=== PATIENT | male | born 1950 | race Caucasian/White ===

== ENCOUNTER 2019-11-01 02:40 | Outpatient (CLI) | payer MEDICARE, SELFPAY ==
[2019-11-01 16:48] LABS: ALT 38 U/L (16-63); AST 18 U/L (15-37); Alkaline Phosphatase 74 U/L (46-116); Bilirubin, Direct 0.09 mg/dL (0.00-0.20); Bilirubin, Total 0.4 mg/dL (0.2-1.0); Total Protein 6.8 g/dL (6.4-8.2)
== END 2019-11-01 03:00 ==
PROVIDERS: Visit Provider Radiology Radiation Oncology
DX: C61 Malignant neoplasm of prostate (principal)
CPT/HCPCS: 36415; 80076

== ENCOUNTER 2019-12-12 02:36 | Outpatient (CLI) | payer MEDICARE, SELFPAY ==
[2019-12-12 10:52] LABS: ALT 36 U/L (16-63); AST 18 U/L (15-37); Albumin 3.5 g/dL (3.4-5.0); Alkaline Phosphatase 74 U/L (46-116); Bilirubin, Direct 0.13 mg/dL (0.00-0.20); Bilirubin, Total 0.6 mg/dL (0.2-1.0); Total Protein 6.1 g/dL (6.4-8.2)
== END 2019-12-12 02:56 ==
PROVIDERS: Visit Provider Radiology Radiation Oncology
DX: C61 Malignant neoplasm of prostate (principal)
CPT/HCPCS: 36415; 80076

== ENCOUNTER 2020-04-02 02:25 | Outpatient (CLI) | payer OTHER, SELFPAY ==
[2020-04-02 11:07] LABS: ALT 35 U/L (16-63); AST 15 U/L (15-37); Albumin 3.4 g/dL (3.4-5.0); Alkaline Phosphatase 97 U/L (46-116); Bilirubin, Direct 0.07 mg/dL (0.00-0.20); Bilirubin, Total 0.4 mg/dL (0.2-1.0); Total Protein 6.2 g/dL (6.4-8.2)
[2020-04-03 15:48] LABS: PSA, Ultrasensitive 0.05 ng/mL (<= 6.5)
[2020-04-06 00:07] LABS: Testosterone, Total 14 ng/dL (240-950)
== END 2020-04-02 02:45 ==
PROVIDERS: Visit Provider Radiology Radiation Oncology
DX: C61 Malignant neoplasm of prostate (principal)
CPT/HCPCS: 36415; 80076; 84153; 84403

== ENCOUNTER 2020-05-24 10:00 | Outpatient (REF) | payer MEDICARE, SELFPAY ==
[2020-05-27 12:51] LABS: COVID-19 RT-PCR UVMMC Result Negative (Negative)
== END 2020-05-24 10:01 | disposition home or self-care (01) ==
LOC: NCHCN 10:00
PROVIDERS: PCP Internal Medicine; Visit Provider Internal Medicine
DX: Z20.822 Contact with and (suspected) exposure to COVID-19 (principal)
CPT/HCPCS: U0003

== ENCOUNTER 2020-08-08 13:17 | Outpatient (CLI) | payer MEDICARE, SELFPAY ==
[2020-08-08 14:06] LABS: Abs Immature Grans 0.05 10^3/uL (0.0-0.06); Absolute Basophil Count 0.06 10^3/uL (0.0-0.2); Absolute Eosinophil Count 0.29 10^3/uL (0.0-0.7); Absolute Lymphocyte Count 1.21 10^3/uL (1.2-3.4); Absolute Monocyte Count 0.69 10^3/uL (0.1-0.8); Absolute Neutrophil Count 5.82 10^3/uL (1.2-6.7); Basophils % 0.7; Eosinophils % 3.6; HGB 12.5 g/dL (13.5-17.5); Immature Grans % 0.6; Lymphocytes % 14.9; MCH 28.7 pg (27.0-33.0); MCHC 32.9 % (32.0-36.0); MCV 87.4 fL (80-95); MPV 9.9 fL (8.0-11.0); Monocytes % 8.5; Neutrophils % 71.7; Nucleated RBC 0 %; Platelet Count 252 10^3/uL (130-400); RBC 4.35 10^6/uL (4.36-5.78); RDW 14.5 % (11.8-14.1); RDW-SD 46.7 fL; WBC 8.12 10^3/uL (4.4-10.8)
[2020-08-08 15:10] LABS: ALT 29 U/L (16-63); AST 13 U/L (15-37); Albumin 3.6 g/dL (3.4-5.0); Alkaline Phosphatase 101 U/L (46-116); Anion Gap 9.3 mmol/L (3-11); BUN 11 mg/dL (7-18); Bilirubin, Total 0.3 mg/dL (0.2-1.0); CO2 25.7 mmol/L (21.0-32.0); CREATININE 0.8 mg/dL (0.70-1.30); Calcium 9.2 mg/dL (8.5-10.1); Chloride 106 mmol/L (98-107); Glucose 98 mg/dL (74-106); Potassium 4.5 mmol/L (3.5-5.1); Sodium 141 mmol/L (136-145); Total Protein 6.5 g/dL (6.4-8.2)
[2020-08-09 17:36] LABS: PSA, Ultrasensitive <0.01 ng/mL (<= 6.5)
[2020-08-12 16:23] LABS: Testosterone, Total 16 ng/dL (240-950)
== END 2020-08-08 13:18 | disposition home or self-care (01) ==
LOC: LBO 13:18
PROVIDERS: PCP Internal Medicine; Visit Provider Nurse Practitioner
DX: C61 Malignant neoplasm of prostate (principal)
CPT/HCPCS: 36415; 80053; 84153; 84403; 85025

== ENCOUNTER 2020-10-14 01:51 | Outpatient (CLI) | payer OTHER, SELFPAY ==
[2020-10-14 11:24] LABS: Source Nasal/Nares
[2020-10-14 17:41] LABS: COVID-19 PCR Negative (Negative)
== END 2020-10-14 01:52 | disposition home or self-care (01) ==
LOC: LBO 01:51
PROVIDERS: Visit Provider Student in an Organized Health Care Education/Training Program
DX: Z20.822 Contact with and (suspected) exposure to COVID-19 (principal); Z01.818 Encounter for other preprocedural examination
CPT/HCPCS: 87635

== ENCOUNTER 2020-10-15 06:10 | Day surgery (SDC) | payer OTHER, SELFPAY ==
[2020-10-15 06:14] VITALS: BP 163/81; PULSE 69; RESP 18; TEMP 36.3; O2SAT 97
--- NOTE | 2020-10-15 06:52 | W.ANESPRE ---
General Info Date of Service Date Performed: 10/15/20 Height: 6 ft 1 in Weight: 127.459 kg Body Mass Index (BMI): 37.0 Surgical Procedure: Operation Date: 10/15/20 07:40 Proposed Procedures Side Surgeon p Wrist ECTR Right Ger Green MD Meds Allergies and Home Medications Allergies Allergy/AdvReac Type Severity Reaction Status Date / Time hydrochlorothiazide Allergy Verified 10/15/20 06:35 lisinopril Allergy Verified 10/15/20 06:35 Home Medication Medication Instructions Recorded simvastatin 20 mg PO .QHS 11/18/13 acetaminophen [Tylenol] 650 mg PO BID 09/28/14 apixaban 5 mg tablet 5 mg PO BID 03/18/20 atorvastatin 80 mg tablet 80 mg PO DAILY 03/18/20 metoprolol succinate 50 mg 50 mg PO DAILY 04/10/20 tablet,extended release 24 hr Current Visit Medications: Current Medications Generic Name Dose Route Start Last Admin Trade Name Freq PRN Reason Stop Dose Admin Ringer's Solution 1,000 mls @ 80 mls/hr 10/15/20 06:00 IV 11/13/20 23:59 INFUSION LEOPOLDO Cefazolin Sodium 3,000 mg/ 100 mls @ 200 mls/hr 10/15/20 06:00 Sodium Chloride IVPB 10/15/20 16:00 PREOP LEOPOLDO IV Miscellaneous Supplies 1 each 10/15/20 06:00 Iv Access IV 11/13/20 23:59 DIRECTED LEOPOLDO Sodium Chloride 0 ml 10/15/20 06:00 Normal Saline Flush 10 Ml Syr IV 11/13/20 23:59 PRN PRN Sodium Chloride 0 ml 10/15/20 06:00 Normal Saline 10 Ml Vial IJ 11/13/20 23:59 DIRECTED PRN Sterile Water 0 ml 10/15/20 06:00 Water,Injection,Sterile 10 Ml Vial IJ 11/13/20 23:59 DIRECTED PRN PFSH Active Problems Active Problems: Problem Status Onset Code Ulnar neuropathy of both upper extremities G56.23 Bilateral carpal tunnel syndrome G56.03 Medical History Medical History (Updated 10/11/20 @ 14:40 by Toro Velasco) Afib Amputation finger Atrial flutter Bereavement, uncomplicated Bilateral carpal tunnel syndrome Blepharitis Counseling for marital and partner problems, unspecified Dermatophytosis of nail Diarrhea Erectile dysfunction Essential hypertension Hearing loss Ingrown nail longterm current use of anticoagulant Lumbosacral neuritis Major depressive disorder Obesity due to excess calories Osteoarthritis of knee, unspecified Other color vision deficiencies Partner relationship problem Pelvic joint pain PTSD (post-traumatic stress disorder) Respiratory abnormality Pt. denies this Sensorineural hearing loss, bilateral Ulnar neuropathy of both upper extremities Umbilical hernia Venous insufficiency (chronic) (peripheral) Vitiligo Surgical History Surgical History History of cardiac radiofrequency ablation 2018 Tobacco Smoking/Tobacco Use Status: Never Alcohol Alcohol Intake: current Alcohol intake frequency: 0-2 drinks per day Substance Use Substance use: Never Substance use type: does not use Vital Signs and Lab Results Vital Signs Most Recent Vital Signs in EMR: Most Recent Vital Signs Temp Pulse Resp BP Pulse Ox 36.3 C L 69 18 163/81 H 97 10/15/20 06:14 10/15/20 06:14 10/15/20 06:14 10/15/20 06:14 10/15/20 06:14 Lab Results Blood Type / Crossmatch: No Data to Display Complete Blood Count: No Data to Display Complete Metabolic Panel: No Data to Display Liver Function Panel: No Data to Display Coagulation Panel: No Data to Display Cardiac Panel: No Data to Display Arterial Blood Gas: No Data to Display Venous Blood Gas: No Data to Display Pancreas Panel: No Data to Display Thyroid Panel: No Data to Display Infectious Disease: Coronavirus (COVID-19)(PCR) Negative (Negative) 10/14/20 08:33 10/14/20 Coronavirus 2019 Source Nasal/Nares 10/14/20 08:33 10/14/20 Blood Cultures: No Data to Display Toxicology Panel: No Data to Display Anesthesia Assessment and Plan Anesthesia History Personal History: No History of Anesthesia Complications Family History: No Family History of Anesthesia Complications Exercise Tolerance Exercise Tolerance: Metabolic Equivalents>4 Pertinent Negatives Pertinent Negatives: No Symptoms of GERD, No Major Cardiovascular Symptoms or Complaints, No Major Pulmonary Symptoms or Complaints and No History of CVA/TIA Cardiac & Pulmonary Exam Cardiac Exam: Normal S1/S2 Heart Sounds Pulmonary Exam: Clear Bilateral Breath Sounds Airway Exam Known Difficult Airway: No Mallampati Class: 2 Mouth Opening: Normal (> 3cm) Thyromental Distance: Less than 3 cm Neck Range of Motion: Full ROM Neck Circumference: Thick Teeth Condition: Normal Dentition Airway Comments: High angle narrow palate #21 capped ASA Classification ASA Score: ASA 2 Emergency Case?: No NPO Status NPO Status: NPO Clears >2 hours, Solids >8 hours Anesthesia Plan Resuscitation Status: Full Code Anesthesia Technique: General Anesthesia Airway Planned: Natural Airway Monitors Used: Standard Monitors
[2020-10-15 06:57] VITALS: BMI 37.0
--- NOTE | 2020-10-15 07:17 | W.PM.DSUDISC ---
Discharge Plan Disposition Patient Disposition: HOME Condition: Good Discharge Details Reason For Visit: R ECTR Attending Provider: Ger Green Primary Care Provider: Unknown,Unknown Home Meds and New Rx's Prescriptions: New hydrocodone-acetaminophen 5-325 mg tablet 1 tab PO Q8H PRN (Reason: pain) Qty: 3 RF: 0 Continued atorvastatin 80 mg tablet 80 mg PO DAILY RF: 0 apixaban 5 mg tablet 5 mg PO BID RF: 0 simvastatin 20 MG tablet 20 mg PO .QHS RF: 0 metoprolol succinate 50 mg tablet extended release 24 hr 50 mg PO DAILY RF: 0 acetaminophen [Tylenol] 325 MG tablet 650 mg PO BID RF: 0 Discharge Instructions Stand Alone Forms: Peter Ferrera Tunnel Release Referrals: Ger Green MD [ [facility] STAFF PHYSICIAN] - 11/11/20 11:15 am Activity:: Elevate Remove Dressings/Wound Care:: 48 hours Shower/Bathe:: 48 hours Diet:: As Tolerated Discharge Orders Discharge Orders: Discharge Order (Routine); Ordered 10/15/20 Ordered By: Ger Green DS: Diagnosis Discharge Diagnosis (1) Bilateral carpal tunnel syndrome: Status: Acute
[2020-10-15] MEDS: ceFAZolin 3,000 MG in Normal Saline 100 ML 200 MG IVPB (07:24)
[2020-10-15] MEDS: Lactated Ringers 1,000 ML 80 ML IV (07:48)
[2020-10-15 07:50] VITALS: BP 142/65; PULSE 68; RESP 16; TEMP 36.5; O2SAT 94
--- NOTE | 2020-10-15 08:03 | W.ANESPOSTOP ---
Postoperative Evaluation Date, Time and Location Date Performed: 10/15/20 Time Performed: 08:03 Patient Location: Day Surgery Unit Vital Signs Most Recent Imported Vital Signs: Most Recent Vital Signs Temp Pulse Resp BP Pulse Ox 36.5 C 68 16 142/65 H 94 10/15/20 07:50 10/15/20 07:50 10/15/20 07:50 10/15/20 07:50 10/15/20 07:50 Pain Score Most Recent Pain Score: Most Recent Pain Score Pain Level 0 10/15/20 07:50 Assessment Mental Status: Awake (Alert & Oriented to Patient Baseline) Airway and Respiratory Function: Patent airway with normal (patient baseline) respiratory exam Cardiovascular Function: Hemodynamically Stable Hydration Status: Adequately Hydrated Nausea & Vomiting: No Nausea or Vomiting Pain: Pt. Denies Any Pain Peripheral Nerve Block: Patient did not receive a nerve block
[2020-10-15 08:19] VITALS: BP 130/68; PULSE 58; RESP 16; TEMP 36.2; O2SAT 96
--- NOTE | 2020-10-15 09:55 | W.PM.OP ---
Date of service: 10/15/20 Time of Service: 07:45 Operative Note Operative Note DATE OF PROCEDURE: 10/15/20 PRE-OP DIAGNOSIS: Right Carpal Tunnel Syndrome POST-OP DIAGNOSIS: same PROCEDURE: Right Endoscopic Carpal Tunnel Release SURGEON: Ger Green ANESTHESIA TYPE: General:No Airway Refer to Anesthesia Record ESTIMATED BLOOD LOSS: 0 PATHOLOGY: none sent TOURNIQUET TIME: 5 COMPLICATIONS: None Patient was transported to: same day Patient's condition: stable Indications: I have seen Jasper in clinic for symptoms of carpal tunnel syndrome. The numbness, tingling, and pain limited function. Clinical exam findings with nerve conduction tests confirmed the diagnosis of carpal tunnel syndrome. Nonoperative measures such as bracing, time, activity modifications had been tried but disability and pain persisted. I discussed carpal tunnel release with the patient. I reviewed the risks of the procedure to include, but not limited to, bleeding, infection, pain, stiffness, incomplete release, damage to nerves or vessels, persistent numbness, recurrence. Despite these risks, the patient elected to proceed. Findings: There was tightened carpal tunnel. This was dilated and released successfully with the endoscopic with increased space within the tunnel. The antebrachial fascia was released proximally freeing the median nerve at the wrist. Procedure Description: Jasper was greeted in the preoperative holding area where the correct side was identified and marked. The consent was reviewed with the patient and signed. The history and physical was updated. All questions were answered. He was taken back to the operating room. The patient was placed into the supine position on the operating room table with the right arm on an arm board. A nonsterile tourniquet was placed high onto the arm. All bony prominences were well padded. Prophylactic antibiotics in the form of Cefazolin were administered. The right arm was then prepped with Chloraprep and draped in a standard fashion with stockinette and extremity drape. A timeout to confirm correct identity, side and site, procedure, allergies, anesthesia, and medical concerns was performed. The surgical site was marked in the volar wrist creases in line with the radial border of the fourth ray. This area was anesthetized with approximately 6cc of 1% Lidocaine. The limb was then exsanguinated with an Esmarch. The skin was incised with a 15 blade, approximately 1cm. The skin only was cut and the deeper tissue was dissected bluntly with a tenotomy scissor, avoiding passing nerve and venous structures. The fascia was penetrated and opened bluntly. A two-prong skin hook was placed under this proximal fascial edge. A series of hamate finders were used to identify and dilate the carpal tunnel. Synovial elevator was used to free synovial attachments to the underside of the transverse carpal ligament. My thumb was kept in the palm to merlyn the distal extent of the carpal tunnel and correctly position the hand. The Microaire endoscope was inserted without difficulty and without resistance. Excellent visualization showed horizontally running fibers of the transverse carpal ligament (TCL). The distal extent of the TCL was visualized and the end of the scope palpated with the thumb. The blade was elevated and withdrawn from distal to proximal. The TCL was split into two flaps. The endoscope was reinserted to confirm complete release and any remnant ligament was incised. The scope was withdrawn and the proximal aspect of the carpal tunnel was grossly inspected and appeared release with the median nerve visible. The antebrachial fascia at the level of the wrist was then freed from the overlying skin and then the underlying median nerve with blunt dissection. This was transected longitudinally for about 3cm proximal to the wrist incision. The wound was then irrigated with easy flow of irrigant distally and proximally. The incision was closed with a single 4-0 Nylon suture. The wound was dressed with Xeroform, Gauze, Kerlix and Calvin. The tourniquet was deflated with the initial dressing and held with some pressure. Blood flow returned easily to all digits with capillary refill less than 2 seconds. The patient tolerated the procedure well and was returned to the Same Day Surgery area in a stable condition suffering no known complication.
== END 2020-10-15 08:40 | disposition home or self-care (01) ==
PROVIDERS: Visit Provider Student in an Organized Health Care Education/Training Program
PROC: 01N54ZZ Release Median Nerve, Percutaneous Endoscopic Approach (ICD-10-PCS; CPT 29848; principal; 2020-10-15 07:30)
DX: G56.03 Carpal tunnel syndrome, bilateral upper limbs (principal); I48.91 Unspecified atrial fibrillation; I10 Essential (primary) hypertension
CPT/HCPCS: 29848; J0690; J2001; J2250

== ENCOUNTER 2020-10-29 08:24 | Day surgery (SDC) | payer OTHER, SELFPAY ==
--- NOTE | 2020-10-29 07:36 | PDOC.DSDIS_ITS ---
Discharge Plan Disposition Patient Disposition: HOME Condition: Good Discharge Details Reason For Visit: Left carpal tunnel syndrome Attending Provider: Ger Green Primary Care Provider: Unknown,Unknown Home Meds and New Rx's Prescriptions: No Action atorvastatin 80 mg tablet 80 mg PO DAILY RF: 0 apixaban 5 mg tablet 5 mg PO BID RF: 0 simvastatin 20 MG tablet 20 mg PO .QHS RF: 0 metoprolol succinate 50 mg tablet extended release 24 hr 50 mg PO DAILY RF: 0 acetaminophen [Tylenol] 325 MG tablet 650 mg PO BID RF: 0 hydrocodone-acetaminophen 5-325 mg tablet 1 tab PO Q8H PRN (Reason: pain) Qty: 3 RF: 0 diltiazem HCl 240 mg Capsule,Extended Release 24 Hr 240 mg PO DAILY RF: 0 Centrum Silver Men 300-600-300 mcg Tablet 1 tab PO DAILY RF: 0 Discharge Instructions Stand Alone Forms: Tanishaa Iban Tunnel Release Referrals: Ger Green MD [ [facility] STAFF PHYSICIAN] - Activity:: Elevate Remove Dressings/Wound Care:: 48 hours Shower/Bathe:: 48 hours Diet:: As Tolerated Discharge Orders Discharge Orders: Discharge Order (Routine); Ordered 10/29/20 Ordered By: Caryl Dunaway DS: Diagnosis Discharge Diagnosis (1) Left carpal tunnel syndrome: Status: Acute
--- NOTE | 2020-10-29 08:28 | ANES.PREOP_ITS ---
General Info Date of Service Date Performed: 10/29/20 Height: 6 ft 1 in Weight: 127.459 kg Body Mass Index (BMI): 37.0 Surgical Procedure: Operation Date: 10/29/20 10:25 Proposed Procedures Side Surgeon p Wrist ECTR Left Ger Green MD Meds Allergies and Home Medications Allergies Allergy/AdvReac Type Severity Reaction Status Date / Time hydrochlorothiazide Allergy Verified 10/28/20 11:56 lisinopril Allergy Verified 10/28/20 11:56 Home Medication Medication Instructions Recorded simvastatin 20 mg PO .QHS 11/18/13 acetaminophen [Tylenol] 650 mg PO BID 09/28/14 apixaban 5 mg tablet 5 mg PO BID 03/18/20 atorvastatin 80 mg tablet 80 mg PO DAILY 03/18/20 metoprolol succinate 50 mg 50 mg PO DAILY 04/10/20 tablet,extended release 24 hr hydrocodone-acetaminophen 1 tab PO Q8H PRN #3 tab 10/15/20 diltiazem HCl 240 mg PO DAILY 10/29/20 [id number] 1 tab PO DAILY 10/29/20 [Centrum Silver Men] Current Visit Medications: Current Medications Generic Name Dose Route Start Last Admin Trade Name Freq PRN Reason Stop Dose Admin Acetaminophen 650 mg 10/29/20 07:35 Acetaminophen 325 Mg Tab PO Q4H PRN PRN Hydrocodone Bitart/Acetaminophen 0 tab 10/29/20 07:35 Hydrocodone 5/Acetaminophen 325 Tab PO Q3H PRN PRN Pain Cefazolin Sodium 3,000 mg/ 100 mls @ 200 mls/hr 10/29/20 06:00 Sodium Chloride IVPB 10/29/20 16:00 PREOP LEOPOLDO Ringer's Solution 1,000 mls @ 80 mls/hr 10/29/20 06:00 IV 11/27/20 23:59 INFUSION LEOPOLDO IV Miscellaneous Supplies 1 each 10/29/20 06:00 Iv Access IV 11/27/20 23:59 DIRECTED LEOPOLDO Sodium Chloride 0 ml 10/29/20 06:00 Normal Saline Flush 10 Ml Syr IV 11/27/20 23:59 PRN PRN Sodium Chloride 0 ml 10/29/20 06:00 Normal Saline 10 Ml Vial IJ 11/27/20 23:59 DIRECTED PRN Sterile Water 0 ml 10/29/20 06:00 Water,Injection,Sterile 10 Ml Vial IJ 11/27/20 23:59 DIRECTED PRN PFS Active Problems Active Problems: Problem Status Onset Code Right carpal tunnel syndrome G56.01 Left carpal tunnel syndrome G56.02 Ulnar neuropathy of both upper extremities G56.23 Medical History Medical History Afib Amputation finger Atrial flutter Bereavement, uncomplicated Bilateral carpal tunnel syndrome Blepharitis Counseling for marital and partner problems, unspecified Dermatophytosis of nail Diarrhea Erectile dysfunction Essential hypertension Hearing loss Ingrown nail Left carpal tunnel syndrome 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 denies this Sensorineural hearing loss, bilateral Ulnar neuropathy of both upper extremities Umbilical hernia Venous insufficiency (chronic) (peripheral) Vitiligo Surgical History Surgical History History of cardiac radiofrequency ablation 2018 Right carpal tunnel syndrome s/p right ECTR DOS: 10/15/20 Tobacco Smoking/Tobacco Use Status: Never Alcohol Alcohol Intake: current Alcohol intake frequency: 0-2 drinks per day Substance Use Substance use: Never Substance use type: does not use Vital Signs and Lab Results Lab Results Blood Type / Crossmatch: No Data to Display Complete Blood Count: No Data to Display Complete Metabolic Panel: No Data to Display Liver Function Panel: No Data to Display Coagulation Panel: No Data to Display Cardiac Panel: No Data to Display Arterial Blood Gas: No Data to Display Venous Blood Gas: No Data to Display Pancreas Panel: No Data to Display Thyroid Panel: No Data to Display Infectious Disease: Coronavirus (COVID-19)(PCR) Negative (Negative) 10/14/20 08:33 10/14/20 Coronavirus 2019 Source Nasal/Nares 10/14/20 08:33 10/14/20 Blood Cultures: No Data to Display Toxicology Panel: No Data to Display Anesthesia Assessment and Plan Anesthesia History Personal History: No History of Anesthesia Complications Family History: No Family History of Anesthesia Complications Exercise Tolerance Exercise Tolerance: Metabolic Equivalents>4 Pertinent Negatives Pertinent Negatives: No Symptoms of GERD Cardiac & Pulmonary Exam Cardiac Exam: Normal S1/S2 Heart Sounds Pulmonary Exam: Clear Bilateral Breath Sounds Airway Exam Known Difficult Airway: No Mallampati Class: 2 Mouth Opening: Normal (> 3cm) Thyromental Distance: Less than 3 cm Neck Range of Motion: Full ROM Neck Circumference: Thick Teeth Condition: Normal Dentition ASA Classification ASA Score: ASA 3 Emergency Case?: No NPO Status NPO Status: NPO Clears >2 hours, Solids >8 hours Anesthesia Plan Resuscitation Status: Full Code Anesthesia Technique: General Anesthesia Airway Planned: Natural Airway Monitors Used: Standard Monitors
[2020-10-29 08:51] VITALS: BP 147/80; PULSE 69; RESP 20; TEMP 36.5; O2SAT 95
[2020-10-29] MEDS: Lactated Ringers 1,000 ML 80 ML IV (09:16)
[2020-10-29 09:31] VITALS: BMI 37.0
[2020-10-29] MEDS: ceFAZolin 3,000 MG in Normal Saline 100 ML 200 MG IVPB (09:55)
[2020-10-29] MEDS: Sodium Bicarbonate 50 MEQ/50 ML VIAL (10:01)
[2020-10-29 10:21] VITALS: BP 111/64; PULSE 64; RESP 18; TEMP 36.5; O2SAT 96
--- NOTE | 2020-10-29 10:24 | W.ANESPOSTOP ---
Postoperative Evaluation Date, Time and Location Date Performed: 10/29/20 Time Performed: 10:25 Patient Location: Day Surgery Unit Vital Signs Most Recent Imported Vital Signs: Most Recent Vital Signs Temp Pulse Resp BP Pulse Ox 36.5 C 69 20 147/80 H 95 10/29/20 08:51 10/29/20 08:51 10/29/20 08:51 10/29/20 08:51 10/29/20 08:51 Most Recent Manually Entered Vital Signs: Adult Blood Pressure: 111/64 Heart Rate: 64 Respirations: 16 Oxygen Saturation (%): 94 Temperature (C): 36.5 C Pain Score (0-10 Scale): 0 Pain Score Most Recent Pain Score: Most Recent Pain Score Pain Level 0 10/29/20 08:51 Assessment Mental Status: Awake (Alert & Oriented to Patient Baseline) Airway and Respiratory Function: Patent airway with normal (patient baseline) respiratory exam Cardiovascular Function: Hemodynamically Stable Hydration Status: Adequately Hydrated Nausea & Vomiting: No Nausea or Vomiting Pain: Pt. Denies Any Pain Peripheral Nerve Block: Patient did not receive a nerve block
[2020-10-29 10:25] VITALS: BP 111/64; PULSE 64; RESP 16; TEMPC 36.5; O2SAT 94
[2020-10-29 10:54] VITALS: BP 125/73; PULSE 60; RESP 18; TEMP 36.3; O2SAT 95
--- NOTE | 2020-10-29 14:30 | W.PM.OP ---
Date of service: 10/29/20 Time of Service: 10:30 Operative Note Operative Note DATE OF PROCEDURE: 10/29/20 PRE-OP DIAGNOSIS: Left Carpal tunnel Syndrome POST-OP DIAGNOSIS: same PROCEDURE: Left Endoscopic Carpal Tunnel Release SURGEON: Ger Green ANESTHESIA TYPE: General:No Airway Refer to Anesthesia Record ESTIMATED BLOOD LOSS: 0 PATHOLOGY: none sent TOURNIQUET TIME: 4 COMPLICATIONS: None Patient was transported to: same day Patient's condition: stable Indications: I have seen Jasper in clinic for symptoms of carpal tunnel syndrome. The numbness, tingling, and pain limited function. Clinical exam findings with nerve conduction tests confirmed the diagnosis of carpal tunnel syndrome. Nonoperative measures such as bracing, time, activity modifications had been tried but disability and pain persisted. I discussed carpal tunnel release with the patient. He had a successful release on the other side last week. I reviewed the risks of the procedure to include, but not limited to, bleeding, infection, pain, stiffness, incomplete release, damage to nerves or vessels, persistent numbness, recurrence. Despite these risks, the patient elected to proceed. Findings: There was tightened carpal tunnel. This was dilated and released successfully with the endoscopic with increased space within the tunnel. The antebrachial fascia was released proximally freeing the median nerve at the wrist. Procedure Description: Jasper was greeted in the preoperative holding area where the correct side was identified and marked. The consent was reviewed with the patient and signed. The history and physical was updated. All questions were answered. He was taken back to the operating room. The patient was placed into the supine position on the operating room table with the left arm on an arm board. A nonsterile tourniquet was placed high onto the arm. All bony prominences were well padded. Prophylactic antibiotics in the form of Cefazolin were administered. The left arm was then prepped with Chloraprep and draped in a standard fashion with stockinette and extremity drape. A timeout to confirm correct identity, side and site, procedure, allergies, anesthesia, and medical concerns was performed. The surgical site was marked in the volar wrist creases in line with the radial border of the fourth ray. This area was anesthetized with approximately 6cc of 1% Lidocaine. The limb was then exsanguinated with an Esmarch. The skin was incised with a 15 blade, approximately 1cm. The skin only was cut and the deeper tissue was dissected bluntly with a tenotomy scissor, avoiding passing nerve and venous structures. The fascia was penetrated and opened bluntly. A two-prong skin hook was placed under this proximal fascial edge. A series of hamate finders were used to identify and dilate the carpal tunnel. Synovial elevator was used to free synovial attachments to the underside of the transverse carpal ligament. My thumb was kept in the palm to merlyn the distal extent of the carpal tunnel and correctly position the hand. The Microaire endoscope was inserted without difficulty and without resistance. Excellent visualization showed horizontally running fibers of the transverse carpal ligament (TCL). The distal extent of the TCL was visualized and the end of the scope palpated with the thumb. The blade was elevated and withdrawn from distal to proximal. The TCL was split into two flaps. The endoscope was reinserted to confirm complete release and any remnant ligament was incised. The scope was withdrawn and the proximal aspect of the carpal tunnel was grossly inspected and appeared release with the median nerve visible. The antebrachial fascia at the level of the wrist was then freed from the overlying skin and then the underlying median nerve with blunt dissection. This was transected longitudinally for about 3cm proximal to the wrist incision. The wound was then irrigated with easy flow of irrigant distally and proximally. The incision was closed with a single 4-0 Nylon suture. The wound was dressed with Xeroform, Gauze, Kerlix and Calvin. The tourniquet was deflated with the initial dressing and held with some pressure. Blood flow returned easily to all digits with capillary refill less than 2 seconds. The suture from the right hand was removed without difficulty. The patient tolerated the procedure well and was returned to the Same Day Surgery area in a stable condition suffering no known complication.
== END 2020-10-29 11:05 | disposition home or self-care (01) ==
LOC: SUR 08:24
PROVIDERS: Visit Provider Student in an Organized Health Care Education/Training Program
PROC: 01N54ZZ Release Median Nerve, Percutaneous Endoscopic Approach (ICD-10-PCS; CPT 29848; principal; 2020-10-29 10:15)
DX: G56.02 Carpal tunnel syndrome, left upper limb (principal); I48.91 Unspecified atrial fibrillation; I10 Essential (primary) hypertension
CPT/HCPCS: 29848; J0690; J2001; J2250

== ENCOUNTER 2020-11-04 09:19 | Outpatient (CLI) | payer OTHER, SELFPAY ==
[2020-11-04 09:31] LABS: Abs Immature Grans 0.02 10^3/uL (0.0-0.06); Absolute Basophil Count 0.07 10^3/uL (0.0-0.2); Absolute Lymphocyte Count 1.05 10^3/uL (1.2-3.4); Absolute Monocyte Count 0.52 10^3/uL (0.1-0.8); Absolute Neutrophil Count 2.94 10^3/uL (1.2-6.7); Basophils % 1.4; HCT 40.3 % (40.0-50.0); HGB 12.6 g/dL (13.5-17.5); Immature Grans % 0.4; MCH 27.8 pg (27.0-33.0); MCHC 31.3 % (32.0-36.0); MPV 9.2 fL (8.0-11.0); Monocytes % 10.4; Neutrophils % 58.8; Nucleated RBC 0 %; Platelet Count 165 10^3/uL (130-400); RBC 4.53 10^6/uL (4.36-5.78); RDW 15.5 % (11.8-14.1); RDW-SD 50.6 fL
[2020-11-04 09:50] LABS: ALT 26 U/L (16-63); AST 12 U/L (15-37); Albumin 3.9 g/dL (3.4-5.0); Alkaline Phosphatase 93 U/L (46-116); Anion Gap 9.1 mmol/L (3-11); BUN 22 mg/dL (7-18); Bilirubin, Total 0.4 mg/dL (0.2-1.0); CO2 25.9 mmol/L (21.0-32.0); CREATININE 0.7 mg/dL (0.70-1.30); Calcium 9.4 mg/dL (8.5-10.1); Chloride 105 mmol/L (98-107); Glucose 110 mg/dL (74-106); Potassium 4.8 mmol/L (3.5-5.1); Sodium 140 mmol/L (136-145); Total Protein 7.1 g/dL (6.4-8.2)
[2020-11-05 15:24] LABS: PSA, Ultrasensitive <0.01 ng/mL (<= 6.5)
[2020-11-07 09:56] LABS: Testosterone, Total 16 ng/dL (240-950)
== END 2020-11-04 09:20 | disposition home or self-care (01) ==
LOC: LBO 09:20
PROVIDERS: Visit Provider Nurse Practitioner
DX: C61 Malignant neoplasm of prostate (principal)
CPT/HCPCS: 36415; 80053; 84153; 84403; 85025

== ENCOUNTER 2021-04-08 02:41 | Outpatient (CLI) | payer MEDICARE, SELFPAY ==
[2021-04-08 12:40] LABS: Abs Immature Grans 0.03 10^3/uL (0.0-0.06); Absolute Basophil Count 0.09 10^3/uL (0.0-0.2); Absolute Eosinophil Count 0.36 10^3/uL (0.0-0.7); Absolute Monocyte Count 0.78 10^3/uL (0.1-0.8); Absolute Neutrophil Count 6.12 10^3/uL (1.2-6.7); Eosinophils % 4.1; HCT 41.1 % (40.0-50.0); HGB 13.1 g/dL (13.5-17.5); Immature Grans % 0.3; Lymphocytes % 15.9; MCH 27.8 pg (27.0-33.0); MCHC 31.9 % (32.0-36.0); MCV 87.3 fL (80-95); MPV 9.3 fL (8.0-11.0); Monocytes % 8.9; Neutrophils % 69.8; Nucleated RBC 0 %; Platelet Count 194 10^3/uL (130-400); RBC 4.71 10^6/uL (4.36-5.78); RDW 15.2 % (11.8-14.1); RDW-SD 48.6 fL; WBC 8.78 10^3/uL (4.4-10.8)
[2021-04-08 13:45] LABS: ALT 29 U/L (16-63); AST 11 U/L (15-37); Albumin 3.8 g/dL (3.4-5.0); Alkaline Phosphatase 95 U/L (46-116); Anion Gap 8.9 mmol/L (3-11); BUN 15 mg/dL (7-18); Bilirubin, Total 0.5 mg/dL (0.2-1.0); CO2 26.1 mmol/L (21.0-32.0); CREATININE 0.7 mg/dL (0.70-1.30); Calcium 9.1 mg/dL (8.5-10.1); Chloride 103 mmol/L (98-107); Glucose 94 mg/dL (74-106); Potassium 4.2 mmol/L (3.5-5.1); Sodium 138 mmol/L (136-145); Total Protein 6.8 g/dL (6.4-8.2)
[2021-04-10 08:54] LABS: Testosterone, Total 18 ng/dL (240-950)
[2021-04-10 11:49] LABS: PSA, Ultrasensitive <0.01 ng/mL (<= 6.5)
== END 2021-04-08 02:42 | disposition home or self-care (01) ==
LOC: LBO 02:41
PROVIDERS: Nurse Practitioner Family; PCP Internal Medicine; Visit Provider Internal Medicine Hematology & Oncology
DX: C61 Malignant neoplasm of prostate (principal)
CPT/HCPCS: 36415; 80053; 84153; 84403; 85025

== ENCOUNTER 2021-10-01 13:00 | Outpatient (CLI) | payer MEDICARE, SELFPAY ==
[2021-10-01 12:03] LABS: Abs Immature Grans 0.03 10^3/uL (0.0-0.06); Absolute Basophil Count 0.09 10^3/uL (0.0-0.2); Absolute Eosinophil Count 0.38 10^3/uL (0.0-0.7); Absolute Lymphocyte Count 1.11 10^3/uL (1.2-3.4); Absolute Monocyte Count 0.63 10^3/uL (0.1-0.8); Absolute Neutrophil Count 5.41 10^3/uL (1.2-6.7); Basophils % 1.2; HGB 12.8 g/dL (13.5-17.5); Immature Grans % 0.4; Lymphocytes % 14.5; MCH 27.9 pg (27.0-33.0); MCV 87 fL (80-95); MPV 9.7 fL (8.0-11.0); Monocytes % 8.2; Neutrophils % 70.7; Platelet Count 185 10^3/uL (130-400); RBC 4.59 10^6/uL (4.36-5.78); RDW 14.5 % (11.8-14.1); RDW-SD 46.2 fL; WBC 7.65 10^3/uL (4.4-10.8)
[2021-10-01 12:33] LABS: ALT 29 U/L (16-63); AST 11 U/L (15-37); Albumin 3.5 g/dL (3.4-5.0); Alkaline Phosphatase 90 U/L (46-116); BUN 19 mg/dL (7-18); Bilirubin, Total 0.4 mg/dL (0.2-1.0); CREATININE 0.8 mg/dL (0.70-1.30); Calcium 8.7 mg/dL (8.5-10.1); Chloride 106 mmol/L (98-107); Glucose 118 mg/dL (74-106); Potassium 4.2 mmol/L (3.5-5.1); Sodium 141 mmol/L (136-145); Total Protein 6.6 g/dL (6.4-8.2)
[2021-10-03 09:38] LABS: PSA, Ultrasensitive <0.01 ng/mL (<= 6.5)
== END 2021-10-01 13:01 | disposition home or self-care (01) ==
LOC: LBO 13:03
PROVIDERS: PCP Internal Medicine; Visit Provider Nurse Practitioner Family
DX: C61 Malignant neoplasm of prostate (principal)
CPT/HCPCS: 36415; 80053; 84153; 85025

== ENCOUNTER 2022-04-07 13:36 | Outpatient (CLI) | payer MEDICARE, SELFPAY ==
[2022-04-07 13:28] LABS: Abs Immature Grans 0.04 10^3/uL (0.0-0.06); Absolute Basophil Count 0.11 10^3/uL (0.0-0.2); Absolute Eosinophil Count 0.43 10^3/uL (0.0-0.7); Absolute Lymphocyte Count 1.54 10^3/uL (1.2-3.4); Absolute Monocyte Count 0.73 10^3/uL (0.1-0.8); Basophils % 1.5; Eosinophils % 5.8; HCT 40.7 % (40.0-50.0); HGB 13.1 g/dL (13.5-17.5); Immature Grans % 0.5; Lymphocytes % 20.7; MCHC 32.2 % (32.0-36.0); MCV 87 fL (80-95); Monocytes % 9.8; Neutrophils % 61.7; Platelet Count 198 10^3/uL (130-400); RBC 4.68 10^6/uL (4.36-5.78); RDW 14.6 % (11.8-14.1); RDW-SD 46.5 fL; WBC 7.45 10^3/uL (4.4-10.8)
[2022-04-07 13:51] LABS: ALT 24 U/L (16-63); AST 14 U/L (15-37); Albumin 3.7 g/dL (3.4-5.0); Alkaline Phosphatase 101 U/L (46-116); Anion Gap 8.6 mmol/L (3-11); BUN 17 mg/dL (7-18); Bilirubin, Total 0.4 mg/dL (0.2-1.0); CO2 27.4 mmol/L (21.0-32.0); CREATININE 0.8 mg/dL (0.70-1.30); Calcium 9.4 mg/dL (8.5-10.1); Chloride 104 mmol/L (98-107); Estimated GFR 92.87 (mL/min/1.73m2); Glucose 95 mg/dL (74-106); Potassium 4.4 mmol/L (3.5-5.1); Sodium 140 mmol/L (136-145)
[2022-04-08 16:47] LABS: PSA, Ultrasensitive <0.01 ng/mL (<= 6.5)
[2022-04-10 14:43] LABS: Testosterone, Total 13 ng/dL (240-950)
== END 2022-04-07 13:37 | disposition home or self-care (01) ==
LOC: LBO 13:37
PROVIDERS: PCP Internal Medicine; Visit Provider Nurse Practitioner Family
DX: C61 Malignant neoplasm of prostate (principal)
CPT/HCPCS: 36415; 80053; 84153; 84403; 85025

== ENCOUNTER 2022-10-26 10:03 | Outpatient (CLI) | payer OTHER, SELFPAY ==
[2022-10-27 15:53] LABS: PSA, Ultrasensitive <0.01 ng/mL (<= 6.5)
[2022-10-31 13:17] LABS: Testosterone, Total 105 ng/dL (240-950)
== END 2022-10-26 10:04 | disposition home or self-care (01) ==
LOC: LBO 10:13
PROVIDERS: PCP Internal Medicine; Visit Provider Nurse Practitioner Family
DX: C61 Malignant neoplasm of prostate (principal)
CPT/HCPCS: 36415; 84153; 84403

== ENCOUNTER 2023-03-13 20:15 | Emergency (ER) | payer OTHER, SELFPAY ==
[2023-03-13] VITALS (27 sets, daily range): BP systolic 111–172; BP diastolic 49–106; PULSE 53–64; RESP 10–25; TEMP 36.4; O2SAT 96
--- NOTE | 2023-03-13 20:15 | RT.EKG_ITS ---
APPROVED REPORT Exam: Resting ECG Reason for Exam: low blood pressure Patient Location: E HR:60 bpm ECG Measurements Heart Rate 60 AXIS MN 247 P 55 QRSd 120 QRS 31 QT 451 T 54 QTc 452 Conclusion Sinus rhythm...normal P axis, V-rate 60- 99 Prolonged MN interval...MN >220, V-rate 50- 90 Nonspecific intraventricular conduction delay...QRSd >115mS, not LBBB/RBBB sinus rhtyhm, prolonged MN, normal axis, non ischemic
--- NOTE | 2023-03-13 20:34 | ED.GENADUL_ITS ---
Discharge Plan Disposition Patient Disposition: Home Condition: Stable Discharge Details Clinical Impression: Dizziness Primary Care Provider: Jamin Storm ED Provider: Kelly Gibbs Home Meds and New Rx's Prescriptions: Continued atorvastatin 80 mg tablet 80 mg PO DAILY apixaban 5 mg tablet 5 mg PO BID cyclobenzaprine 10 mg tablet 10 mg PO HS PRN acetaminophen [Tylenol] 325 MG tablet 650 mg PO BID diltiazem HCl 240 mg Capsule,Extended Release 24 Hr 240 mg PO DAILY Centrum Silver Men 300-600-300 mcg Tablet 1 tab PO DAILY omega 7-cwm-cxh-fish oil [Fish Oil] 1,000 mg (120 mg-180 mg) capsule 1 cap PO DAILY Discharge Instructions Instructions: Dizziness (ED) Additional Instructions: No evidence of heart attack, no evidence of aneurysm no pneumothorax, pneumonia. You have been observed in the ER for over 2 hours and your heart rate has maintained mid 50s. 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 Return to ED sooner if any worsening dizziness, headache, chest pain, bradycardia, fainting or near fainting, sweatiness, weakness on one side of your body, confusion or concerns. Increase oral fluids. Referrals: [facility] [Outside] Jamin Storm [Primary Care Provider] - 5 days Medical Decision Making 73-year-old male with past medical history of atrial for been atrial flutter with 2 cardiac ablations and recent history of a kidney stone removal at the [facility] approximately 2 weeks ago presents with dizziness on and off and a report of bradycardia with a heart rate in the 40s from an Apple Watch which occurred approximately 1 to 2 hours prior to arrival while sitting down. Patient reports that he has been dizzy on and off today. He does endorse that he has had some hematuria and bloody urine since the procedure at the [facility] 2 weeks ago. He reports that when he did stand up he got dizzy. He denies any chest pain no shortness of breath no abdominal pain. He does have a follow-up appointment in March with the [facility] for [facility]. Also of note is he did forget to take his medications this morning which include 240 mg of diltiazem and apixaban 5 mg. Workup ordered including CBC CMP serial troponins, PT PTT. Ethyl Alcohol added on, CXR. EKG was reviewed by Dr. Emery Atkins ER attending, EKG shows prolonged UT interval, intraventricular conduction delay UT interval is 247 QTc is 451 does have a history of prolonged UT interval on old EKG from September 2014 Differential diagnosis includes but not limited to anemia, dehydration, CAD, AAA, OK, CBC shows no leukocytosis, hemoglobin 12.7 hematocrit 39.9 last hemoglobin was 13 in March, MCHC 31.8% RDW 15.6%, RBCs within normal limits, PT PTT also within normal limits CMP within normal limits, initial troponin less than 50 which is within normal limits ethyl alcohol less than 3.0. Chest x-ray is pending result at this time. Patient has no chest pain, he is stated in the mid 50s throughout his stay, repeat blood pressure 111 systolic. CXR shows questionable widened mediastinum compared to his previous CXR from 2014, patient states he ahs a little chest tightness while gesturing to his mid-epigastric area, which he attributes to needing his bed adjusted. Patient states this just began since being here. CTA thorax and abdomen ordered to rule out aortic anuerysm. CT within normal limits, chest x-ray shows cardiomediastinal silhouette mildly prominent size. No pneumothorax no pleural effusion no consolidation. Patient has been observed in the ER for over 2 hours with no bradycardic episodes we will plan to discharge patient home with follow-up with PCP/cardiology or return to the ER for any worsening. All his questions were answered to the best my ability, patient was given a disc [facility] He is inquiring about kidney stones which were not mentioned on the CT the stent is in place. Patient remained hemodynamically stable with no complaints upon discharge. This text was generated using [employer] dictation system, please disregard any oddities of phrase or misspellings. Imaging Data Radiologic Study: Imaging: CT Scan Radiologist's impression: Imaging protocol: Computed tomographic angiography of the chest with contrast. Exam focused on the arteries. Computed tomographic angiography of the abdomen and pelvis with contrast. FINDINGS: VASCULATURE: Pulmonary arteries: Normal. No pulmonary emboli. Aorta: No aortic aneurysm. No aortic dissection. Celiac trunk and mesenteric arteries: No occlusion or significant stenosis. Renal arteries: No occlusion or significant stenosis. Right iliac arteries: No occlusion or significant stenosis. Left iliac arteries: No occlusion or significant stenosis. CHEST: Lungs: Unremarkable. No consolidation. No masses. Pleural spaces: Unremarkable. No pneumothorax. No pleural effusion. Heart: Unremarkable. No cardiomegaly. No pericardial effusion. ABDOMEN AND PELVIS: Liver: No mass. Gallbladder and bile ducts: Unremarkable. No calcified stones. No ductal dilation. Pancreas: Unremarkable. No mass. No ductal dilation. Spleen: Unremarkable. No splenomegaly. Adrenal glands: Unremarkable. No mass. Kidneys and ureters: Right ureteral stent appears to be in good position. Simple appearing right renal cysts, the largest measuring 7.2 cm at the upper pole. No renal mass or hydronephrosis. Stomach and bowel: Unremarkable. No obstruction. No mucosal thickening. Appendix: No evidence of appendicitis. Intraperitoneal space: Unremarkable. No free air. No significant fluid collection. Urinary bladder: Unremarkable. No mass. Reproductive: Unremarkable as visualized. Lymph nodes: Unremarkable. No enlarged lymph nodes. Bones/joints: Significant multilevel degenerative disc disease and facet arthropathy throughout the lower spine. Mild grade 1 anterolisthesis L4. No vertebral body compression or acute fracture. Prominent anterior syndesmophyte formation of the right sacroiliac joint noted. Soft tissues: Unremarkable. IMPRESSION: No evidence of aortic aneurysm or dissection. Incidental chronic appearing findings as noted. Lab Data Lab results reviewed: Yes I reviewed the patient's lab results. Labs: Laboratory Tests Range/Units 03/13/23 03/13/23 20:24 21:14 WBC (4.4-10.8) 10^3/uL 10.25 RBC (4.36-5.78) 10^6/uL 4.58 Hgb (13.5-17.5) g/dL 12.7 L Hct (40.0-50.0) % 39.9 L MCV (80-95) fL 87 MCH (27.0-33.0) pg 27.7 MCHC (32.0-36.0) % 31.8 L RDW (11.8-14.1) % 15.6 H Plt Count (130-400) 10^3/uL 241 MPV (8.0-11.0) fL 9.5 Immature Gran % 0.6 Neutrophils % 57.1 Lymphocytes % 24.1 Monocytes % 9.6 Eosinophils % 7.2 Basophils % 1.4 Nucleated RBC % (0.0-0.3) % 0.0 Absolute Neutrophils (1.2-6.7) 10^3/uL 5.86 Absolute Lymphocytes (1.2-3.4) 10^3/uL 2.47 Absolute Monocytes (0.1-0.8) 10^3/uL 0.98 H Absolute Eosinophils (0.0-0.7) 10^3/uL 0.74 H Absolute Basophils (0.0-0.2) 10^3/uL 0.14 PT (9.1-11.1) sec 10.7 INR (0.9-1.1) 1.1 APTT (23.6-32.8) sec 27.3 Sodium (136-145) mmol/L 136 Potassium (3.5-5.1) mmol/L 3.8 Chloride (98-107) mmol/L 102 Carbon Dioxide (21.0-32.0) mmol/L 26.3 Anion Gap (3-11) mmol/L 7.7 BUN (7-18) mg/dL 16 Creatinine (0.70-1.30) mg/dL 0.9 Est GFR (CKD-EPI 2020) (mL/min/1.73m2) 89.07 Glucose (74-106) mg/dL 105 Calcium (8.5-10.1) mg/dL 9.0 Magnesium (1.8-2.4) mg/dL 1.9 Total Bilirubin (0.2-1.0) mg/dL 0.4 AST (15-37) U/L 10 L ALT (16-63) U/L 26 Alkaline Phosphatase (46-116) U/L 91 Troponin I (<or=60) ng/L < 50 Total Protein (6.4-8.2) g/dL 7.0 Albumin (3.4-5.0) g/dL 3.5 Ethyl Alcohol (<10) mg/dL < 3.0 Add-On Test Request DONE HPI General Mode of arrival: wheelchair . Date/Time Provider Initiated Documentation: 03/13/23 20:16 . Limitations to Documentation: no limitations . Information obtained by: patient, family (), RN notes reviewed and old records reviewed . HPI Narrative: 73-year-old male with past medical history of atrial for been atrial flutter with 2 cardiac ablations and recent history of a kidney stone removal at the [facility] approximately 2 weeks ago presents with dizziness on and off and a report of bradycardia with a heart rate in the 40s from an Apple Watch which occurred approximately 1 to 2 hours prior to arrival while sitting down. Patient reports that he has been dizzy on and off today. He does endorse that he has had some hematuria and bloody urine [facility]. He reports that when he did stand up he got dizzy. He denies any chest pain no shortness of breath no abdominal pain. He does have a follow-up appointment in March with the [facility] for [facility]. Also of note is he did forget to take his medications this morning which include 240 mg of diltiazem and apixaban 5 mg. Related Data Home Medications Medication Instructions Recorded Confirmed acetaminophen 325 mg tablet 650 mg PO BID 09/28/14 03/13/23 (Tylenol) apixaban 5 mg tablet 5 mg PO BID 03/18/20 03/13/23 atorvastatin 80 mg tablet 80 mg PO DAILY 03/18/20 03/13/23 diltiazem HCl 240 mg capsule,24 240 mg PO DAILY 10/29/20 03/13/23 hr,extended release ympgwkrr-qq-sbide 300 mcg-K 60 1 tab PO DAILY 10/29/20 03/13/23 mcg-lycop 600 mcg-lutein 300 mcg tablet (Centrum Silver Men) cyclobenzaprine 10 mg tablet 10 mg PO HS PRN 04/09/21 03/13/23 omega 7-oje-yhc-fish oil 1,000 mg 1 cap PO DAILY 03/13/23 03/13/23 (120 mg-180 mg) capsule (Fish Oil) Allergies Allergy/AdvReac Type Severity Reaction Status Date / Time hydrochlorothiazide Allergy Verified 03/13/23 20:22 lisinopril Allergy Verified 05/19/21 08:17 General Stated Complaint: Palpitatns MICHELLE: 2 Review of Systems All systems reviewed & are unremarkable except as noted in HPI and below ENT Ears, Nose, Mouth, and Throat: Reports dizziness Cardiovascular Cardiovascular: Reports as per HPI, Denies chest pain, Reports pedal edema (left greater than right, chronic), Denies dyspnea, Reports slow heart rate and R eports other (Dizziness) Respiratory Respiratory: Denies chest congestion, Denies cough, Denies dyspnea, Denies stridor and Denies wheezing Gastrointestinal Gastrointestinal: Denies abdominal pain Genitourinary Genitourinary: Reports as per HPI and Reports hematuria Neurologic Neurologic: Reports dizziness Allergic/Immunologic Allergic/Immunologic: Denies wheezing PFSH All Active Problems (Updated 03/13/23 @ 22:58 by Kelly Gibbs NP) Dizziness (Acute) Trigger finger, left middle finger (Acute) Injection 05/19/2021 Trigger finger, right middle finger (Acute) Injection 11/11/2020 Right carpal tunnel syndrome (Acute) s/p right ECTR DOS: 10/15/20 Left carpal tunnel syndrome (Acute) s/p left ECTR DOS: 10/29/20 Ulnar neuropathy of both upper extremities (Acute) Medical History Bilateral carpal tunnel syndrome Vitiligo Venous insufficiency (chronic) (peripheral) Atrial flutter Afib Umbilical hernia Sensorineural hearing loss, bilateral Respiratory abnormality Pt. 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 Pelvic joint pain Ingrown nail Hearing loss Essential hypertension Diarrhea Dermatophytosis of nail Counseling for marital and partner problems, unspecified Other color vision deficiencies Blepharitis Bereavement, uncomplicated Amputation finger Surgical History History of cardiac radiofrequency ablation 2018 Social History Smoking/Tobacco Use Status: Never Smoking risk assessment performed?: Yes Alcohol Intake: current Alcohol Intake frequency: 0-2 drinks per day Alcohol type: hard liquor Drug use: Never Substance use type: does not use Household members: significant other Housing: house Number of Children: 2 number of grandchildren: 2 Pets and animals: No Current gender identity: male What is your relationship status?: living with partner Panel score (0-1 are the most socially isolated patients): 1 What type of physical activity do you participate in: walking Seatbelt use: always Do you feel safe at home: Yes Do you feel safe in your relationship?: Yes Exam Narrative Exam Narrative: Constitutional: Alert and oriented x3. Appears stated age. Obese body habitus. Head: Normocephalic, no trauma. Eyes: Pupils PERRL, Red reflex noted, EOM's intact. Eyelids symmetrical without lesions, discharge, or swelling. Chest: RRR, with a rate of 54, normal S1, S2, distal pulses intact. Resp: Lungs clear to auscultation bilaterally, no wheezes, rales, or rhonchi. Abdomen: Soft, non-distended, Normoactive bowel sounds all 4 quads. No CVA tenderness. Musculoskeletal: Unable to assess gait 5/5 strength to all four extremities. Does have 2+ pitting edema noted to his left lower extremity which she reports is chronic from a previous injury. He does endorse some occasional swelling in his lower extremities. Skin: No suspicious rashes or lesions. Capillary refill less than 2 sec. Neurologic: Cranial nerves II-XII intact. Alert and oriented x 3. Motor: No de ficits noted. Sensory: Intact bilaterally all 4 extremities. Hematologic/Lymphatic: No ecchymosis, no lymphadenopathy. Course Vital Signs Vital signs: Vital Signs Temperature 36.4 C L 03/13/23 20:18 Pulse 64 03/13/23 20:18 Respiratory Rate 24 03/13/23 20:18 Pulse Oximetry 96 03/13/23 20:18 Temperature 36.4 C L 03/13/23 20:18 Temperature Source Temporal Artery Scan 03/13/23 20:18 Pulse 64 03/13/23 20:18 Respiratory Rate 24 03/13/23 20:18 Pulse Oximetry 96 03/13/23 20:18 Oxygen Delivery Method Room Air 03/13/23 20:18 Oxygen Flow Rate 0 03/13/23 20:18 Pain Level 0 03/13/23 20:18
[2023-03-13 20:38] LABS: Abs Immature Grans 0.06 10^3/uL (0.0-0.06); Absolute Basophil Count 0.14 10^3/uL (0.0-0.2); Absolute Eosinophil Count 0.74 10^3/uL (0.0-0.7); Absolute Lymphocyte Count 2.47 10^3/uL (1.2-3.4); Absolute Monocyte Count 0.98 10^3/uL (0.1-0.8); Absolute Neutrophil Count 5.86 10^3/uL (1.2-6.7); Basophils % 1.4; Eosinophils % 7.2; HCT 39.9 % (40.0-50.0); HGB 12.7 g/dL (13.5-17.5); Immature Grans % 0.6; Lymphocytes % 24.1; MCH 27.7 pg (27.0-33.0); MCHC 31.8 % (32.0-36.0); MCV 87 fL (80-95); MPV 9.5 fL (8.0-11.0); Monocytes % 9.6; Neutrophils % 57.1; Platelet Count 241 10^3/uL (130-400); RBC 4.58 10^6/uL (4.36-5.78); RDW 15.6 % (11.8-14.1); RDW-SD 49.6 fL; WBC 10.25 10^3/uL (4.4-10.8)
--- NOTE | 2023-03-13 20:45 | DI.RAD_ITS ---
Exam(s) XR PORTABLE CHEST AP EXAM: XR PORTABLE CHEST AP CLINICAL HISTORY: Palpitations, dizziness. TECHNIQUE: 2D digital imaging was performed. COMPARISON: No exams were available for comparison FINDINGS: Single AP portable view. Mild cardiomegaly. Mediastinum not widened. Lungs are clear. No infiltrates nor obvious pleural effusions. IMPRESSION: No acute pulmonary findings on this single AP portable view of the chest. Mild cardiomegaly noted. DATA REPOSITORY: RADIATION DOSE DELIVERED:
[2023-03-13 20:56] LABS: ALT 26 U/L (16-63); AST 10 U/L (15-37); Albumin 3.5 g/dL (3.4-5.0); Alkaline Phosphatase 91 U/L (46-116); Anion Gap 7.7 mmol/L (3-11); BUN 16 mg/dL (7-18); Bilirubin, Total 0.4 mg/dL (0.2-1.0); CO2 26.3 mmol/L (21.0-32.0); CREATININE 0.9 mg/dL (0.70-1.30); Chloride 102 mmol/L (98-107); Estimated GFR 89.07 (mL/min/1.73m2); Glucose 105 mg/dL (74-106); Magnesium 1.9 mg/dL (1.8-2.4); Potassium 3.8 mmol/L (3.5-5.1); Sodium 136 mmol/L (136-145); Troponin I < 50 ng/L (<or=60)
[2023-03-13 21:06] LABS: INR 1.1 (0.9-1.1); PTT Activated 27.3 sec (23.6-32.8); Prothrombin Time 10.7 sec (9.1-11.1)
[2023-03-13 21:15] LABS: Lab Add On Test DONE
[2023-03-13 21:27] LABS: ETHANOL BLOOD < 3.0 mg/dL (<10)
--- NOTE | 2023-03-13 22:00 | DI.CT_ITS ---
Exam(s) CT THORAX ABD/PEL CTA EXAM: CT THORAX ABD/PEL CTA CLINICAL HISTORY: wide mediastinum on cxr, lightheaded. TECHNIQUE: Imaging Protocol: Axial computed tomography images with coronal and sagittal reformatted images were created and reviewed CONTRAST MATERIAL: Intravenous: Omnipaque 350 Contrast volume:100 ml Oral: None COMPARISON: CR,XR XR PORTABLE CHEST AP from 03/13/2023 FINDINGS: CHEST: AORTA: The diameter of the ascending thoracic aorta is upper normal. There is no evidence of aortic dissection nor pericardial effusion. Also no evidence of abdominal aortic aneurysm. The celiac and superior mesenteric arteries are patent. Inferior mesenteric artery is patent. No significant renal artery stenosis. Mild arterial megaly of the common iliac arteries noted but without prominent aneu rysms. Also without significant stenosis in these vessels. Femoral arteries and proximal SFA arteri es are patent. LUNGS: No infiltrates nor pleural effusions. No significant lung nodules. No findings in the trache a and mainstem bronchi.. MEDIASTINUM: There is no hilar nor mediastinal adenopathy. Visualized thyroid unremarkable. CARDIAC: Heart size is upper normal. There is no pericardial effusion. ABDOMEN: There is no evidence of abdominal aortic aneurysm nor dissection.There is no aneurysmal dilatation of the common iliac arteries.The celiac and superior mesenteric arteries are patent. There is no ascites. LIVER: There are no focal hepatic lesions nor dilatation of intrahepatic ducts. Steatosis noted. GALLBLADDER/BILIARY: No obvious gallbladder pathology. CBD is not dilated. PANCREAS: No evidence of pancreatic mass nor dilatation of the pancreatic duct. SPLEEN: Spleen is not enlarged. There are no intrasplenic lesions. ADRENALS: There are no significant adrenal masses. KIDNEYS: There cysts in the right kidney. The largest is in the upper pole and measures 7 by 5.7 cm. Possible calculus versus is contrast in the lower pole calyx of the right kidney. Left kidney appe ars unremarkable. There is a right ureteral double pigtail stent in place extending from the right r enal pelvis down into the urinary bladder. There are no radiopaque calculi seen along the course of the right ureter. No hydronephrosis on either side. No solid renal masses.. ABDOMINAL AORTA: See above LYMPH NODES: There is no retroperitoneal nor para-aortic adenopathy. No obvious mesenteric masses. ABDOMINAL WALL: No evidence of significant anterior abdominal wall hernia. GI: There is no evidence of bowel obstruction, free air, nor abscess. PELVIS: LYMPH NODES: There is no intrapelvic nor inguinal adenopathy. GI: No evidence of appendicitis.No evidence of sigmoid diverticulitis. URINARY BLADDER: The inferior aspect of the double-pigtail stent is in the urinary bladder. REPRODUCTIVE: There are seeds on both sides the prostate. The prostate is not enlarged. Seminal ves icles unremarkable. There is no obturator adenopathy. OSSEOUS: No lytic nor blastic osseous lesions identified. No fractures. IMPRESSION: 1. No evidence of aortic aneurysm nor dissection. No pericardial effusion 2. Right ureteral stent is in place. No obvious hydronephrosis. 3. No acute pulmonary findings. 4. RADIATION DOSE DELIVERED: Total DLP DATA REPOSITORY: All CT scans at this facility are submitted to the National Radiology Data Registry (NRDR) Dose Index Registry (DIR) with the [employer] (ACR). RADIATION OPTIMIZATION: All CT scans at this facility use at least one of these dose optimization te chniques: automated exposure control; mA and/or kV adjustment per patient size (includes targeted exa ms where dose is matched to clinical indication); or iterative reconstruction.
[2023-03-13] MEDS: Normal Saline - Diluent 50 ML VIAL IJ (22:15)
[2023-03-13] MEDS: Omnipaque 350 MG/ML 100 ML BTL 125 ML IJ (22:16)
--- NOTE | 2023-03-13 22:46 | DI.VRAD_ITS ---
PROCEDURE INFORMATION: Exam: CTA Chest With Contrast CTA Abdomen and Pelvis With Contrast Exam date and time: 03/13/2023 10:18 PM Age: 73 years old Clinical indication: Other: Wide mediastinum on cxr, lightheaded TECHNIQUE: Imaging protocol: Computed tomographic angiography of the chest with contrast. Exam focused on the arteries. Computed tomographic angiography of the abdomen and pelvis with contrast. Exam focused on the arteries. 3D rendering (Not supervised by radiologist): MIP and/or 3D reconstructed images were created by the technologist. Contrast material: OMNIPAQUE 350; Contrast volume: 125 ml; Contrast route: INTRAVENOUS (IV); COMPARISON: CR XR PORTABLE CHEST AP 03/13/2023 9:14 PM FINDINGS: VASCULATURE: Pulmonary arteries: Normal. No pulmonary emboli. Aorta: No aortic aneurysm. No aortic dissection. Celiac trunk and mesenteric arteries: No occlusion or significant stenosis. Renal arteries: No occlusion or significant stenosis. Right iliac arteries: No occlusion or significant stenosis. Left iliac arteries: No occlusion or significant stenosis. CHEST: Lungs: Unremarkable. No consolidation. No masses. Pleural spaces: Unremarkable. No pneumothorax. No pleural effusion. Heart: Unremarkable. No cardiomegaly. No pericardial effusion. ABDOMEN AND PELVIS: Liver: No mass. Gallbladder and bile ducts: Unremarkable. No calcified stones. No ductal dilation. Pancreas: Unremarkable. No mass. No ductal dilation. Spleen: Unremarkable. No splenomegaly. Adrenal glands: Unremarkable. No mass. Kidneys and ureters: Right ureteral stent appears to be in good position. Simple appearing right renal cysts, the largest measuring 7.2 cm at the upper pole. No renal mass or hydronephrosis. Stomach and bowel: Unremarkable. No obstruction. No mucosal thickening. Appendix: No evidence of appendicitis. Intraperitoneal space: Unremarkable. No free air. No significant fluid collection. Urinary bladder: Unremarkable. No mass. Reproductive: Unremarkable as visualized. Lymph nodes: Unremarkable. No enlarged lymph nodes. Bones/joints: Significant multilevel degenerative disc disease and facet arthropathy throughout the lower spine. Mild grade 1 anterolisthesis L4. No vertebral body compression or acute fracture. Prominent anterior syndesmophyte formation of the right sacroiliac joint noted. Soft tissues: Unremarkable. IMPRESSION: No evidence of aortic aneurysm or dissection. Incidental chronic appearing findings as noted. Dictated and Authenticated by: Robert Monson MD. Ordering:MANDEEP Hopkins MD
--- NOTE | 2023-03-13 22:47 | DI.VRAD_ITS ---
PROCEDURE INFORMATION: Exam: XR Chest Exam date and time: 03/13/2023 9:14 PM Age: 73 years old Clinical indication: Other: Palpitations, dizziness TECHNIQUE: Imaging protocol: Radiologic exam of the chest. Views: 1 view. COMPARISON: No relevant prior studies available. FINDINGS: Lungs: Unremarkable. No consolidation. Pleural spaces: Unremarkable. No pleural effusion. No pneumothorax. Heart/Mediastinum: Cardiomediastinal silhouette is mildly prominent size. Bones/joints: Moderate degenerative changes noted in the spine and shoulders IMPRESSION: No acute disease Dictated and Authenticated by: Robert Monson MD. Ordering:TAVO Mendoza MD
--- NOTE | 2023-03-17 07:27 | NUR.NOTE ---
Accessed chart to determine orders for EKG and to determine whether or not one needs to be cancelled. Nursing Note:
== END 2023-03-13 23:10 | disposition home or self-care (01) ==
PROVIDERS: Emergency Provider Registered Nurse Emergency; PCP Internal Medicine
DX: R42 Dizziness and giddiness (principal)
CPT/HCPCS: 36415; 71275; 80053; 93005; 99285; 71045; 74174; 80320; 83735; 84484; 85025; 85610; 85730; 93010; 99284; J3490

== ENCOUNTER 2024-01-04 18:09 | Emergency (ER) | payer OTHER, SELFPAY ==
[2024-01-04 18:09] VITALS: BP 181/84; PULSE 71; RESP 14; TEMP 36.4; O2SAT 95
--- NOTE | 2024-01-04 18:30 | DI.CT_ITS ---
Exam(s) CT ABDOMEN PELVIS W EXAM: CT ABDOMEN PELVIS W CLINICAL HISTORY: RLQ abdominal pain TECHNIQUE: Imaging Protocol: Axial computed tomography images with coronal and sagittal reformatted images were created and reviewed. CONTRAST MATERIAL: Intravenous: Omnipaque 350 Contrast volume:100 mL Oral: No COMPARISON: CT CT THORAX ABD/PEL CTA from 03/13/2023 FINDINGS: The examination is limited due to patient motion artifact. ABDOMEN: Lung Bases: There is a small hiatal hernia. Liver: Normal density. There is again seen a cyst in the right lobe of the liver. It is unchanged co mpared to prior examinations. No suspicious hepatic lesions are seen. Portal, Superior Mesenteric, and Splenic Veins: Unremarkable. Gallbladder and Biliary Tract: No radiodense calculus or dilation. Pancreas: Normal density, no abnormal calcifications or inflammatory process. Spleen: Normal. Adrenals: No masses seen. Kidneys: Normal size, contour and axis. There is a 1 cm long collection of stones in the distal right ureter (series 5, image 44). It causes moderate hydronephrosis. There are nonobstructing stones se en in the right kidney. There are stable right renal cysts. There are tiny hypodensities seen in th e kidneys bilaterally. They are too small for further characterization. These likely reflect small cysts. No follow-up is recommended. Abdominal Aorta: Abdominal portion non-dilated. Atherosclerotic calcifications are present. Bowel: No obstruction or bowel wall thickening. No evidence of appendicitis. Peritoneal Cavity: No ascites, collection or mesenteric inflammatory response. No free air. Lymph Nodes: Within normal limits. Bones: Within normal limits for the patient's age. Soft Tissues: Within normal limits for the patient's age. PELVIS: Bladder: The urinary bladder is incompletely distended limiting evaluation. No gross abnormality is identified. Reproductive Organs: Unremarkable as visualized. Lymph Nodes: Within normal limits. Bones: Within normal limits for the patient's age. IMPRESSION: 1. 1 cm long collection of calculi in the distal right ureter causing moderate hydronephrosis. 2. Right nephrolithiasis. RADIATION DOSE DELIVERED: 828.51mGy.cm Total DLP DATA REPOSITORY: All CT scans at this facility are submitted to the National Radiology Data Registry (NRDR) Dose Index Registry (DIR) with the [employer] (ACR). RADIATION OPTIMIZATION: All CT scans at this facility use at least one of these dose optimization te chniques: automated exposure control; mA and/or kV adjustment per patient size (includes targeted exa ms where dose is matched to clinical indication); or iterative reconstruction.
[2024-01-04 18:45] LABS: Abs Immature Grans 0.03 10^3/uL (0.0-0.06); Absolute Basophil Count 0.11 10^3/uL (0.0-0.2); Absolute Eosinophil Count 0.48 10^3/uL (0.0-0.7); Absolute Lymphocyte Count 1.16 10^3/uL (1.2-3.4); Absolute Monocyte Count 0.97 10^3/uL (0.1-0.8); Absolute Neutrophil Count 8.08 10^3/uL (1.2-6.7); Eosinophils % 4.4 %; HCT 43.2 % (40.0-50.0); Immature Grans % 0.3 %; Lymphocytes % 10.7 %; MCH 28.2 pg (27.0-33.0); MCHC 32.4 % (32.0-36.0); MCV 87 fL (80-95); MPV 9.6 fL (8.0-11.0); Neutrophils % 74.6 %; Platelet Count 186 10^3/uL (130-400); RBC 4.97 10^6/uL (4.36-5.78); WBC 10.83 10^3/uL (4.4-10.8)
[2024-01-04 18:59] LABS: ALT 20 U/L (16-63); AST 11 U/L (15-37); Albumin 3.6 g/dL (3.4-5.0); Alkaline Phosphatase 101 U/L (46-116); Anion Gap 9.7 mmol/L (3-11); BUN 15 mg/dL (7-18); Bilirubin, Total 0.63 mg/dL (0.2-1.0); CO2 24.3 mmol/L (21.0-32.0); Calcium 9.1 mg/dL (8.5-10.1); Chloride 107 mmol/L (98-107); Estimated GFR 78.49 (mL/min/1.73m2); Glucose 111 mg/dL (74-106); Sodium 141 mmol/L (136-145); Total Protein 7.1 g/dL (6.4-8.2)
[2024-01-04 19:03] LABS: Bilirubin Negative (Negative); Blood Large (Negative); Clarity Clear (Clear); Glucose Negative (Negative); Ketones Negative (Negative); Leukocyte Esterase Negative (Negative); Nitrite Negative (Negative); Specific Gravity 1.025 (1.005-1.025); Urobilinogen 0.2 mg/dL (Up to 0.2); pH 5.5 (5-8)
[2024-01-04 19:09] LABS: Lipase 23 U/L (16-77)
[2024-01-04 19:18] LABS: Bacteria Negative HPF (Negative); C & S Indicated? No; Crystals Negative HPF (Negative); Epithelial Cells Negative HPF (Negative); Mucus Trace (Negative); RBC 20-50 HPF (0-2); WBC Negative HPF (0-5)
[2024-01-04] MEDS: Omnipaque 350 MG/ML 100 ML BTL IJ (19:27)
[2024-01-04] MEDS: Normal Saline - Diluent 50 ML VIAL IJ (19:28)
[2024-01-04] MEDS: Normal Saline Flush 10 ML SYR IVP (19:29)
[2024-01-04 20:25] VITALS: BP 142/74; PULSE 80; O2SAT 100
--- NOTE | 2024-01-04 20:45 | DI.VRAD_ITS ---
PROCEDURE INFORMATION: Exam: CT Abdomen And Pelvis With Contrast Exam date and time: 01/04/2024 7:25 PM Age: 73 years old Clinical indication: Abdominal pain; Localized; Right; Patient HX: Rlq pain, back pain, HX of kidney stones TECHNIQUE: Imaging protocol: Computed tomography of the abdomen and pelvis with contrast. Radiation optimization: All CT scans at this facility use at least one of these dose optimization techniques: automated exposure control; mA and/or kV adjustment per patient size (includes targeted exams where dose is matched to clinical indication); or iterative reconstruction. Contrast material: OMNIPAQUE 350; Contrast volume: 100 ml; Contrast route: INTRAVENOUS (IV); COMPARISON: CT THORAX ABD/PEL CTA 03/13/2023 10:18 PM FINDINGS: Lungs: Lung bases are clear and heart size is normal. No pleural or pericardial effusions are detected. Liver: No focal hepatic lesions detected. Gallbladder and biliary ducts: Unremarkable with no calcified stone or ductal dilatation detected. Pancreas: No pancreatic mass or ductal dilation. Spleen: No splenomegaly or splenic mass. Adrenal glands: No adrenal masses detected. Kidneys and ureters: Bilateral renal cysts measure up to 28 mm in size on the right and require no further follow-up. There is bilateral excretion of contrast material with delay in the right-sided nephrogram seen associated with right perinephric fascial stranding, moderate hydronephrosis and hydroureter throughout the proximal to mid right ureter. Multiple contiguous 2-3 mm obstructing stones are seen in the distal right ureter a few cm proximal to the ureterovesicular junction (see image 44, series 5). Stomach and bowel: Segments of large and small bowel are normal in caliber throughout with no mucosal thickening, obstruction or perforation. Appendix: No evidence of appendicitis. Intraperitoneal space: No pneumoperitoneum or free intraperitoneal fluid detected. Vasculature: No abdominal aortic aneurysm. Lymph nodes: No lymphadenopathy detected. Urinary bladder: Abnormally elongated configuration and wall thickening with an element of cystitis not excluded. Reproductive: Question bilateral prostatic seed implants; correlation with clinical data is necessary. Bones/joints: Degenerative disc and facet changes are seen throughout lumbar levels with no acute fracture detected. Soft tissues: Unremarkable. IMPRESSION: There is bilateral excretion of contrast material with delay in the right-sided nephrogram seen associated with right perinephric fascial stranding, moderate hydronephrosis and hydroureter throughout the proximal to mid right ureter. Multiple contiguous 2-3 mm obstructing stones are seen in the distal right ureter a few cm proximal to the ureterovesicular junction (see image 44, series 5). Dictated and Authenticated by: Lionel Harrison MD. Ordering:JONAH Llanes MD
[2024-01-04] MEDS: Tamsulosin 0.4 MG CAPCR PO (21:25)
--- NOTE | 2024-01-04 22:41 | ED.GENADUL_ITS ---
Discharge Plan Disposition Patient Disposition: Home Condition: Stable Discharge Details Clinical Impression: Ureterolithiasis Primary Care Provider: Jamin Storm ED Provider: Shraddha Leslie Home Meds and New Rx's Prescriptions: New tamsulosin [Flomax] 0.4 mg capsule 0.4 mg PO DAILY Qty: 10 0RF Continued atorvastatin 80 mg tablet 80 mg PO DAILY apixaban 5 mg tablet 5 mg PO BID cyclobenzaprine 10 mg tablet 10 mg PO HS PRN acetaminophen [Tylenol] 325 MG tablet 650 mg PO BID diltiazem HCl 240 mg Capsule,Extended Release 24 Hr 240 mg PO DAILY Centrum Silver Men 300-600-300 mcg Tablet 1 tab PO DAILY omega 2-rav-jqu-fish oil [Fish Oil] 1,000 mg (120 mg-180 mg) capsule 1 cap PO DAILY Discharge Instructions Instructions: How to Strain Your Urine, Kidney Stone, Adult ED Additional Instructions: Strain your urine, take Flomax as prescribed Call urology for follow-up at the [facility] am also referring you to Dr. Mar Should you develop fever, chills, difficulty urinating, or worsening pain please return immediately for reassessment Referrals: Ace Mar MD [ [facility] STAFF PHYSICIAN] - Jamin Storm [Primary Care Provider] - 1 day HPI General Date/Time Provider Initiated Documentation: 01/04/24 18:30 . HPI Narrative: 73-year-old male presents with right lower quadrant abdominal pain and diarrhea which started this morning. Patient denies any nausea or vomiting. States he has a history of ureterolithiasis, presentation is different from his prior episode. He has had lithotripsy several times in the past for large stones. Patient is a [facility] patient, he has not followed up with urology at the [facility] for several years. Denies fever or chills. Denies hematuria. Denies any known trauma anticoagulated secondary to history of atrial fibrillation. Related Data Home Medications ?Medication ?Instructions ?Recorded ?Confirmed acetaminophen 325 mg tablet 650 mg PO BID 09/28/14 01/04/24 (Tylenol) apixaban 5 mg tablet 5 mg PO BID 03/18/20 01/04/24 atorvastatin 80 mg tablet 80 mg PO DAILY 03/18/20 01/04/24 diltiazem HCl 240 mg capsule,24 240 mg PO DAILY 10/29/20 01/04/24 hr,extended release zdsixiph-pi-uxbnh 300 mcg-K 60 1 tab PO DAILY 10/29/20 01/04/24 mcg-lycop 600 mcg-lutein 300 mcg tablet (Centrum Silver Men) cyclobenzaprine 10 mg tablet 10 mg PO HS PRN 04/09/21 01/04/24 omega 4-xgr-zpq-fish oil 1,000 mg 1 cap PO DAILY 03/13/23 01/04/24 (120 mg-180 mg) capsule (Fish Oil) tamsulosin 0.4 mg capsule (Flomax) 0.4 mg PO DAILY #10 caps 01/04/24 Previous Rx's ?Medication ?Instructions ?Recorded tamsulosin 0.4 mg capsule (Flomax) 0.4 mg PO DAILY #10 caps 01/04/24 Allergies Allergy/AdvReac Type Severity Reaction Status Date / Time hydrochlorothiazide Allergy Unknown Verified 01/04/24 18:13 lisinopril Allergy Unknown Verified 01/04/24 18:13 General Stated Complaint: Abd Prob MICHELLE: 3 Exam Narrative Exam Narrative: 73-year-old male alert, oriented, no acute distress, pupils equal round reactive to light and accommodation, lungs clear to auscultation, cardiac rate rhythm regular, no CVA tenderness, mild right lower quadrant tenderness alert and oriented x 4, 1+ edema to bilateral lower extremities, nontender, distal pulses intact Course Vital Signs Vital signs: Vital Signs Temperature 36.4 C 01/04/24 18:09 Pulse 71 01/04/24 18:09 Respiratory Rate 14 01/04/24 18:09 Blood Pressure 181/84 H 01/04/24 18:09 Pulse Oximetry 95 01/04/24 18:09 Temperature 36.4 C 01/04/24 18:09 Temperature Source Oral 01/04/24 18:09 Pulse 80 01/04/24 20:25 Respiratory Rate 14 01/04/24 18:09 Respiratory Effort Normal 01/04/24 18:41 Blood Pressure 142/74 H 01/04/24 20:25 Blood Pressure Mean 96 01/04/24 20:25 Blood Pressure Position Supine 01/04/24 20:25 Pulse Oximetry 100 01/04/24 20:25 Oxygen Delivery Method Room Air 01/04/24 20:25 Oxygen Flow Rate 0 01/04/24 20:25 Pain Level 5 01/04/24 20:25 Lab/Test Results Lab/Test Results: Laboratory Tests Range/Units 01/04/24 01/04/24 18:10 18:40 WBC (4.4-10.8) 10^3/uL 10.83 H RBC (4.36-5.78) 10^6/uL 4.97 Hgb (13.5-17.5) g/dL 14.0 Hct (40.0-50.0) % 43.2 MCV (80-95) fL 87 MCH (27.0-33.0) pg 28.2 MCHC (32.0-36.0) % 32.4 RDW (11.8-14.1) % 16.0 H Plt Count (130-400) 10^3/uL 186 MPV (8.0-11.0) fL 9.6 Immature Gran % % 0.3 Neutrophils % % 74.6 Lymphocytes % % 10.7 Monocytes % % 9.0 Eosinophils % % 4.4 Basophils % % 1.0 Nucleated RBC % (0.0-0.3) % 0.0 Absolute Neutrophils (1.2-6.7) 10^3/uL 8.08 H Absolute Lymphocytes (1.2-3.4) 10^3/uL 1.16 L Absolute Monocytes (0.1-0.8) 10^3/uL 0.97 H Absolute Eosinophils (0.0-0.7) 10^3/uL 0.48 Absolute Basophils (0.0-0.2) 10^3/uL 0.11 Sodium (136-145) mmol/L 141 Potassium (3.5-5.1) mmol/L 4.0 Chloride (98-107) mmol/L 107 Carbon Dioxide (21.0-32.0) mmol/L 24.3 Anion Gap (3-11) mmol/L 9.7 BUN (7-18) mg/dL 15 Creatinine (0.70-1.30) mg/dL 1.0 Est GFR (CKD-EPI 2020) (mL/min/1.73m2) 78.49 Glucose (74-106) mg/dL 111 H Calcium (8.5-10.1) mg/dL 9.1 Total Bilirubin (0.2-1.0) mg/dL 0.63 AST (15-37) U/L 11 L ALT (16-63) U/L 20 Alkaline Phosphatase (46-116) U/L 101 Total Protein (6.4-8.2) g/dL 7.1 Albumin (3.4-5.0) g/dL 3.6 Lipase (16-77) U/L 23 Urine Color (Yellow) Yellow Urine Clarity (Clear) Clear Urine pH (5-8) 5.5 Ur Specific [place] (1.005-1.025) 1.025 Urine Protein (Neg-Trace) mg/dL Negative Urine Ketones (Negative) mg/dL Negative Urine Blood (Negative) Large H Urine Nitrite (Negative) Negative Urine Bilirubin (Negative) Negative Urine Urobilinogen (Up to 0.2) mg/dL 0.2 Ur Leukocyte Esterase (Negative) Negative Urine RBC (0-2) HPF 20-50 H Urine WBC (0-5) HPF Negative Ur Epithelial Cells (Negative) HPF Negative Urine Crystals (Negative) HPF Negative Urine Bacteria (Negative) HPF Negative Urine Mucus (Negative) Trace Ur Culture Indicated? No Urine Glucose (Negative) mg/dL Negative Medical Decision Making 73-year-old male presenting in no acute distress, CT was ordered for further evaluation secondary right lower quadrant pain, evidence of several stones in the UVJ with obstruction. No evidence of secondary infection on urinalysis. Creatinine within normal limits, diagnostic labs reassuring, hemodynamically stable. Patient will be placed on Flomax and referred to Dr. Mar for urology here. Patient is quite concerned because he is supposed to be leaving in 10 days for [place] and would like to be seen sooner rather than later. He is also given a strainer for his urine. Discharged home in stable condition with stable vitals Quality:SDOH Health Related Social Needs: No Data to Display PFSH All Active Problems (Updated 01/04/24 @ 20:59 by ASAD Rice) Ureterolithiasis (Acute) Trigger finger, left middle finger (Acute) Injection 05/19/2021 Trigger finger, right middle finger (Acute) Injection 11/11/2020 Right carpal tunnel syndrome (Acute) s/p right ECTR DOS: 10/15/20 Left carpal tunnel syndrome (Acute) s/p left ECTR DOS: 10/29/20 Ulnar neuropathy of both upper extremities (Acute) Medical History Bilateral carpal tunnel syndrome Vitiligo Venous insufficiency (chronic) (peripheral) Atrial flutter Afib Umbilical hernia Sensorineural hearing loss, bilateral Respiratory abnormality Pt. 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 neuritis assisted current use of anticoagulant Pelvic joint pain Ingrown nail Hearing loss Essential hypertension Diarrhea Dermatophytosis of nail Counseling for marital and partner problems, unspecified Other color vision deficiencies Blepharitis Bereavement, uncomplicated Amputation finger Surgical History History of cardiac radiofrequency ablation 2018 Social History Smoking/Tobacco Use Status: Never Smoking risk assessment performed?: Yes Alcohol Intake: current Alcohol Intake frequency: 0-2 drinks per day Alcohol type: hard liquor Drug use: Never Substance use type: does not use Household members: significant other Housing: house Number of Children: 2 number of grandchildren: 2 Pets and animals: No Current gender identity: male What is your relationship status?: living with partner Panel score (0-1 are the most socially isolated patients): 1 What type of physical activity do you participate in: walking Seatbelt use: always Do you feel safe at home: Yes Do you feel safe in your relationship?: Yes
== END 2024-01-04 21:35 | disposition home or self-care (01) ==
PROVIDERS: Emergency Provider Physician Assistant; PCP Internal Medicine
DX: R19.7 Diarrhea, unspecified; N13.2 Hydronephrosis with renal and ureteral calculous obstruction; Z87.442 Personal history of urinary calculi; I48.91 Unspecified atrial fibrillation; Z79.01 Long term (current) use of anticoagulants; Z79.899 Other long term (current) drug therapy
CPT/HCPCS: 36415; 80053; 83690; 99285; 74177; 81003; 81015; 85025; 99284; J3490

== ENCOUNTER 2024-07-06 11:36 | Observation (INO) | payer OTHER, SELFPAY ==
[2024-07-06] VITALS (9 sets, daily range): BP systolic 130–158; BP diastolic 62–98; PULSE 59–70; RESP 18–20; TEMP 36.2–37.2; O2SAT 95–98
--- NOTE | 2024-07-06 12:00 | DI.RAD_ITS ---
Exam(s) XR TIB/FIB LT EXAM: XR TIB/FIB LT CLINICAL HISTORY: cellulitis, leg pain. TECHNIQUE: 2D digital imaging was performed. COMPARISON: No exams were available for comparison FINDINGS: 3 views No evidence of acute fractures. There are degenerative changes in the knee. Bone density normal. N o osseous lesions. No radiopaque foreign bodies. There is some edema in the soft tissues of the ezio f. No radiopaque foreign bodies. There is no gas in the soft tissues. IMPRESSION: No acute osseous findings. Degenerative changes in the knee. Soft tissue edema. DATA REPOSITORY: RADIATION DOSE DELIVERED:
--- NOTE | 2024-07-06 12:00 | DI.US_ITS ---
Exam(s) US LOWER EXTREMITY VENOUS LT EXAM: US LOWER EXTREMITY VENOUS LT CLINICAL HISTORY: left leg swelling and pain TECHNIQUE: Grayscale, color, and doppler imaging of the deep venous system of the left lower extremi ty was performed. COMPARISON: US ABDOMEN ULTRASOUND (P) from 09/28/2014 FINDINGS: There is no evidence of intraluminal thrombus and there is normal compression and augmentation demons trated within the common femoral vein, femoral vein, and popliteal vein. In the ipsilateral calf the interrogated veins also exhibit normal compression/ augmentation properti es. The ipsilateral saphenofemoral junction is patent. IMPRESSION: 1. No evidence of DVT in the left lower extremity. DATA REPOSITORY:
[2024-07-06 12:25] LABS: Lactate 1.1 mmol/L (<or=2.0)
[2024-07-06 12:28] LABS: Abs Immature Grans 0.21 10^3/uL (0.0-0.06); Absolute Basophil Count 0.12 10^3/uL (0.0-0.2); Absolute Eosinophil Count 0.51 10^3/uL (0.0-0.7); Absolute Monocyte Count 0.91 10^3/uL (0.1-0.8); Basophils % 1.1 %; Eosinophils % 4.6 %; HCT 41.5 % (40.0-50.0); HGB 13.4 g/dL (13.5-17.5); Immature Grans % 1.9 %; Lymphocytes % 14.5 %; MCH 27.7 pg (27.0-33.0); MCHC 32.3 % (32.0-36.0); MCV 86 fL (80-95); MPV 9.1 fL (8.0-11.0); Monocytes % 8.2 %; Neutrophils % 69.7 %; Platelet Count 375 10^3/uL (130-400); RBC 4.83 10^6/uL (4.36-5.78); RDW 15.9 % (11.8-14.1); RDW-SD 50.5 fL; WBC 11.14 10^3/uL (4.4-10.8)
[2024-07-06 12:30] LABS: Absolute Lymphocyte Count 1.62 10^3/uL (1.2-3.4); Absolute Neutrophil Count 7.76 10^3/uL (1.2-6.7); ESR 43 mm/hr (0-20)
[2024-07-06 13:01] LABS: ALT 34 U/L (16-63); AST 20 U/L (15-37); Albumin 2.4 g/dL (3.4-5.0); Alkaline Phosphatase 117 U/L (46-116); Anion Gap 6.9 mmol/L (3-11); BUN 13 mg/dL (7-18); Bilirubin, Total 0.5 mg/dL (0.2-1.0); C-Reactive Protein 17.09 mg/dL (<or=0.5); CO2 30.1 mmol/L (21.0-32.0); CREATININE 0.9 mg/dL (0.70-1.30); Calcium 9.7 mg/dL (8.5-10.1); Chloride 103 mmol/L (98-107); Estimated GFR 88.51 (mL/min/1.73m2); Glucose 92 mg/dL (74-106); Potassium 3.8 mmol/L (3.5-5.1); Sodium 140 mmol/L (136-145); Total Protein 7.2 g/dL (6.4-8.2)
[2024-07-06] MEDS: VANCOMYCIN/WATER (PEG) 2 GM/400 ML BAG IVPB (14:22)
--- NOTE | 2024-07-06 14:55 | W.ED.GENAD ---
Discharge Plan Discharge Details Chief Complaint: Cellulitis Primary Care Provider: Jamin Storm ED Provider: Shraddha Leslie Home Meds and New Rx's Prescriptions: No Action atorvastatin 80 mg tablet 80 mg PO DAILY apixaban 5 mg tablet 5 mg PO BID acetaminophen [Tylenol] 325 MG tablet 650 mg PO BID diltiazem HCl 240 mg Capsule,Extended Release 24 Hr 240 mg PO DAILY HPI General Date/Time Provider Initiated Documentation: 07/06/24 11:59. HPI Narrative: The patient is a 74-year-old gentleman who presents with a report of leg pain, swelling, and redness. He initially experienced some leg swelling while in [place], with no known trauma. Upon returning home, he noticed some weeping from the leg and sought medical attention at the [facility] in [place]. They recommended leg elevation and did not start him on antibiotics at that time. Over the past few days, he has observed significant redness and worsening pain in the leg, prompting his current visit. He reports no fever but has experienced intermittent chills. He has no history of diabetes or illicit drug use. He has not been on antibiotics and reports no trauma while in [place]. Related Data Home Medications ?Medication ?Instructions ?Recorded ?Confirmed acetaminophen 325 mg tablet 650 mg PO BID 09/28/14 07/06/24 (Tylenol) apixaban 5 mg tablet 5 mg PO BID 03/18/20 07/06/24 atorvastatin 80 mg tablet 80 mg PO DAILY 03/18/20 07/06/24 diltiazem HCl 240 mg capsule,24 240 mg PO DAILY 10/29/20 07/06/24 hr,extended release Allergies Allergy/AdvReac Type Severity Reaction Status Date / Time hydrochlorothiazide AdvReac cough Verified 07/06/24 11:44 lisinopril AdvReac cough Verified 07/06/24 11:44 General Stated Complaint: Cellulitis MICHELLE: 3 Exam Narrative Exam Narrative: General Appearance: Alert and oriented, no acute distress. Vital signs: Within normal limits. HEENT: Within normal limits. Respiratory: Within normal limits. Cardiovascular: Regular cardiac rate and rhythm. Skin: Warm and dry, no rash. Neurological: Normal. Distal pulses intact Course Vital Signs Vital signs: Vital Signs Temperature 37.2 C 07/06/24 11:40 Pulse 70 07/06/24 11:40 Respiratory Rate 19 07/06/24 11:40 Blood Pressure 153/83 H 07/06/24 11:40 Pulse Oximetry 98 07/06/24 11:40 Temperature 37.2 C 07/06/24 11:43 Pulse 65 07/06/24 14:42 Respiratory Rate 18 07/06/24 14:42 Respiratory Effort Normal, Non-Labored 07/06/24 13:51 Respiratory Depth Normal 07/06/24 13:51 Respiratory Pattern Normal 07/06/24 13:51 Blood Pressure 153/64 H 07/06/24 14:42 Blood Pressure Mean 93 07/06/24 14:42 Blood Pressure Position Sitting 07/06/24 14:42 Pulse Oximetry 97 07/06/24 14:42 Oxygen Delivery Method Room Air 07/06/24 13:51 Oxygen Flow Rate 0 07/06/24 13:51 Pain Level 9 07/06/24 11:43 Lab/Test Results Lab/Test Results: 07/06/24 13:48 Leg - Left Lower Wound Culture - Pending 07/06/24 13:48 Leg - Left Lower Gram Stain - Pending 07/06/24 12:29 Blood Blood Culture - Pending 07/06/24 12:18 Blood Blood Culture - Pending Laboratory Tests Range/Units 07/06/24 12:18 WBC (4.4-10.8) 10^3/uL 11.14 H RBC (4.36-5.78) 10^6/uL 4.83 Hgb (13.5-17.5) g/dL 13.4 L Hct (40.0-50.0) % 41.5 MCV (80-95) fL 86 MCH (27.0-33.0) pg 27.7 MCHC (32.0-36.0) % 32.3 RDW (11.8-14.1) % 15.9 H Plt Count (130-400) 10^3/uL 375 MPV (8.0-11.0) fL 9.1 Immature Gran % % 1.9 Neutrophils % % 69.7 Lymphocytes % % 14.5 Monocytes % % 8.2 Eosinophils % % 4.6 Basophils % % 1.1 Nucleated RBC % (0.0-0.3) % 0.0 Absolute Neutrophils (1.2-6.7) 10^3/uL 7.76 H Absolute Lymphocytes (1.2-3.4) 10^3/uL 1.62 Absolute Monocytes (0.1-0.8) 10^3/uL 0.91 H Absolute Eosinophils (0.0-0.7) 10^3/uL 0.51 Absolute Basophils (0.0-0.2) 10^3/uL 0.12 ESR (0-20) mm/hr 43 H VBG Lactate (<or=2.0) mmol/L 1.1 Sodium (136-145) mmol/L 140 Potassium (3.5-5.1) mmol/L 3.8 Chloride (98-107) mmol/L 103 Carbon Dioxide (21.0-32.0) mmol/L 30.1 Anion Gap (3-11) mmol/L 6.9 BUN (7-18) mg/dL 13 Creatinine (0.70-1.30) mg/dL 0.9 Est GFR (CKD-EPI 2020) (mL/min/1.73m2) 88.51 Glucose (74-106) mg/dL 92 Calcium (8.5-10.1) mg/dL 9.7 Total Bilirubin (0.2-1.0) mg/dL 0.5 AST (15-37) U/L 20 ALT (16-63) U/L 34 Alkaline Phosphatase (46-116) U/L 117 H C-Reactive Protein (<or=0.5) mg/dL 17.09 H Total Protein (6.4-8.2) g/dL 7.2 Albumin (3.4-5.0) g/dL 2.4 L Medical Decision Making Mild leukocytosis at 11,000. X-ray and ultrasound of left lower extremity show no acute abnormalities. Initial Assessment: 74-year-old gentleman presents with leg pain, swelling, and redness. No known trauma, diabetes, or illicit drug use. No recent antibiotics. Denies fever, has had intermittent chills. Mild leukocytosis at 11,000. X-ray and ultrasound of left lower extremity without acute abnormalities. Differential Diagnosis: - Left lower extremity cellulitis: Significant redness, swelling, and worsening pain. No trauma, diabetes, or illicit drug use. No recent antibiotics. No sepsis criteria met. Recommend IV antibiotics due to severity. Discussed with Dr. Bell; will admit to his service. Vancomycin recommended. ED Course: - X-ray does not show evidence of acute abnormality. - Ultrasound of left lower extremity without acute abnormalities, specifically no gas. - Recommendation for vancomycin given circumferential lower cellulitis. - Admission to the hospital. - Patient case discussed with Dr. Bell, who will admit patient to his service. Final Assessment: Patient with left lower extremity cellulitis, significant redness, swelling, and worsening pain. No trauma, diabetes, or illicit drug use. No recent antibiotics. No sepsis criteria met. Recommend IV antibiotics due to severity. Discussed with Dr. Bell; will admit to his service. Vancomycin recommended. Clinical Impression: - Left lower extremity cellulitis Disposition: - Admission: Patient will be admitted to Dr. Bell's service. MDM Components Evaluation: - Number of Differential Diagnoses or Management Options: Left lower extremity cellulitis - Amount and Complexity of Data Reviewed: X-ray, ultrasound, consultation with Dr. Bell - Risk of Complication and Morbidity or Mortality: Moderate risk due to severity and acuity of presentation. Quality:SDOH Health Related Social Needs: No Data to Display [facility] All Active Problems (Updated 02/04/24 @ 00:05 by CAROLINA GRULLON) Trigger finger, left middle finger (Acute) Injection 05/19/2021 Trigger finger, right middle finger (Acute) Injection 11/11/2020 Right carpal tunnel syndrome (Acute) s/p right ECTR DOS: 10/15/20 Left carpal tunnel syndrome (Acute) s/p left ECTR DOS: 10/29/20 Ulnar neuropathy of both upper extremities (Acute) Medical History Bilateral carpal tunnel syndrome Vitiligo Venous insufficiency (chronic) (peripheral) Atrial flutter Afib Umbilical hernia Sensorineural hearing loss, bilateral Respiratory abnormality Pt. 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 current use of anticoagulant Pelvic joint pain Ingrown nail Hearing loss Essential hypertension Diarrhea Dermatophytosis of nail Counseling for marital and partner problems, unspecified Other color vision deficiencies Blepharitis Bereavement, uncomplicated Amputation finger Surgical History History of cardiac radiofrequency ablation 2018 Social History Smoking/Tobacco Use Status: Never Smoking risk assessment performed?: Yes Alcohol Intake: current Alcohol Intake frequency: 0-2 drinks per day Alcohol type: hard liquor Drug use: Never Substance use type: does not use Household members: significant other Housing: house Number of Children: 2 number of grandchildren: 2 Pets and animals: No Current gender identity: male What is your relationship status?: living with partner Panel score (0-1 are the most socially isolated patients): 1 What type of physical activity do you participate in: walking Seatbelt use: always Do you feel safe at home: Yes Do you feel safe in your relationship?: Yes
--- NOTE | 2024-07-06 15:33 | W.PM.HP.N ---
Date of service: 07/06/24 Time of Service: 15:33 Assessment and Plan Assessment and plan (1) Afib: Assessment and plan: dario art (2) Cellulitis: Status: Acute Assessment and plan: cw vancomycin and will hopefully be able to downgrade in am. Recheck cbc in am History of Present Illness History of Present Illness Chief Complaint: LLE cellulitis Narrative: This is a 74-year-old gentleman who presents to the ED today with worsening left lower extremity cellulitis. Apparently the patient was seen at the [facility] on Wednesday and was diagnosed with lymphedema and sent home without antibiotics and was told to just elevate his legs. Patient came in today with worsening erythema and was seen in the ED and then admitted to the hospitalist service for further evaluation and treatment. Per my discussion with the patient he endorses this history. Patient has had cellulitis in the past. Patient recently traveled back from [place]. While in the ED a venous ultrasound was done which was negative. The patient also had x-rays done which showed soft tissue edema but no osteomyelitis. Patient was noted to have an elevated white count possibly 11,000 as well as mild anemia. Pt was started on abx (vancomycin) Review of Systems All systems reviewed & are unremarkable except as noted in HPI and below PFSH All Active Problems (Updated 07/06/24 @ 15:44 by Jamin Bell MD) Cellulitis (Acute) Essential hypertension (Chronic) Trigger finger, left middle finger (Acute) Injection 05/19/2021 Trigger finger, right middle finger (Acute) Injection 11/11/2020 Right carpal tunnel syndrome (Acute) s/p right ECTR DOS: 10/15/20 Left carpal tunnel syndrome (Acute) s/p left ECTR DOS: 10/29/20 Ulnar neuropathy of both upper extremities (Acute) Medical History Bilateral carpal tunnel syndrome Vitiligo Venous insufficiency (chronic) (peripheral) Atrial flutter Afib Umbilical hernia Sensorineural hearing loss, bilateral Respiratory abnormality Pt. 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 Pelvic joint pain Ingrown nail Hearing loss Essential hypertension Diarrhea Dermatophytosis of nail Counseling for marital and partner problems, unspecified Other color vision deficiencies Blepharitis Bereavement, uncomplicated Amputation finger Surgical History History of cardiac radiofrequency ablation 2018 Social History Smoking/Tobacco Use Status: Never Smoking risk assessment performed?: Yes Alcohol Intake: current Alcohol Intake frequency: 0-2 drinks per day Alcohol type: hard liquor Drug use: Never Substance use type: does not use Household members: significant other Housing: house Number of Children: 2 number of grandchildren: 2 Pets and animals: No Current gender identity: male What is your relationship status?: living with partner Panel score (0-1 are the most socially isolated patients): 1 What type of physical activity do you participate in: walking Seatbelt use: always Do you feel safe at home: Yes Do you feel safe in your relationship?: Yes Meds Allergies and Home Medications Allergies Allergy/AdvReac Type Severity Reaction Status Date / Time hydrochlorothiazide AdvReac cough Verified 07/06/24 11:44 lisinopril AdvReac cough Verified 07/06/24 11:44 Home Medications ?Medication ?Instructions ?Recorded ?Confirmed ?Type acetaminophen 325 mg tablet 650 mg PO BID 09/28/14 07/06/24 History (Tylenol) apixaban 5 mg tablet 5 mg PO BID 03/18/20 07/06/24 History atorvastatin 80 mg tablet 80 mg PO DAILY 03/18/20 07/06/24 History diltiazem HCl 240 mg capsule,24 240 mg PO DAILY 10/29/20 07/06/24 History hr,extended release Exam Narrative Exam Narrative: HEENT: NCAT MMM EOMI PERRLA NECK: NO LAD NO JVD CV: RRR NO MRG LUNGS: CTAB NO AMU ABD: SNTNDBSA EXT: 3PLUE FERNANDO EDEMA LLE WITH ASSOCIATED ERYTHEMA AND WEEPING OF SEROSANGUINOUS DRAINAGE NEURO: CN2-12 NORMAL TESTED, REFLEXES IN BUE WNL CON: 74 Y/O MALE APPEARS HIS STATED AGE, NO DISTRESS Results Labs 07/06/24 12:18 07/06/24 12:18 Labs: Laboratory Results - last 24 hr 07/06/24 12:18 WBC 11.14 H RBC 4.83 Hgb 13.4 L Hct 41.5 MCV 86 MCH 27.7 MCHC 32.3 RDW 15.9 H Plt Count 375 MPV 9.1 Immature Gran % 1.9 Neutrophils % 69.7 Lymphocytes % 14.5 Monocytes % 8.2 Eosinophils % 4.6 Basophils % 1.1 Nucleated RBC % 0.0 Absolute Neutrophils 7.76 H Absolute Lymphocytes 1.62 Absolute Monocytes 0.91 H Absolute Eosinophils 0.51 Absolute Basophils 0.12 ESR 43 H VBG Lactate 1.1 Sodium 140 Potassium 3.8 Chloride 103 Carbon Dioxide 30.1 Anion Gap 6.9 BUN 13 Creatinine 0.9 Est GFR (CKD-EPI 2020) 88.51 Glucose 92 Calcium 9.7 Total Bilirubin 0.5 AST 20 ALT 34 Alkaline Phosphatase 117 H C-Reactive Protein 17.09 H Total Protein 7.2 Albumin 2.4 L Last Vital Signs Temp 36.6 C 07/06/24 14:58 Pulse 65 07/06/24 14:58 Resp 18 07/06/24 14:58 BP 158/63 H 07/06/24 14:58 Pulse Ox 97 07/06/24 14:58 Time Spent Time spent with Patient: 40-54 minutes Time was spent: preparing to see the patient(eg.review tests), obtaining and/or reviewing separately otained hiistory, ordering medications,tests, procedures, referring, communicating with other health healthcare management, indepentently interpreting results, counseling the patient and care coordination
[2024-07-06] MEDS: Acetaminophen 325 MG TAB PO (16:14)
--- NOTE | 2024-07-06 16:50 | W.PC.ACHO ---
Registration Status: Primary Language: Preferred Language: ED Information & Data Chief Complaint Cellulitis 07/06/24 14:57 Triage Note ~1 week ago pt did more 07/06/24 11:40 walking than usual, has hx of LLW cellulitis, swelling and injury. was seen at [facility] earlier this week, they advised it would heal. it has gotten worse. LLW swollen, red, skin break down , weeping. Medical / Surgical History (Last Reviewed 03/13/23 @ 20:38 by Kelly Gibbs NP) Bilateral carpal tunnel syndrome Vitiligo Venous insufficiency (chronic) (peripheral) Atrial flutter Afib Umbilical hernia Sensorineural hearing loss, bilateral Respiratory abnormality Partner relationship problem PTSD (post-traumatic stress disorder) Obesity due to excess calories Osteoarthritis of knee, unspecified Erectile dysfunction Major depressive disorder Lumbosacral neuritis [employer] current use of anticoagulant Pelvic joint pain Ingrown nail Hearing loss Diarrhea Dermatophytosis of nail Counseling for marital and partner problems, unspecified Other color vision deficiencies Blepharitis Bereavement, uncomplicated Amputation finger (Last Reviewed 03/13/23 @ 20:38 by Kelly Gibbs NP) History of cardiac radiofrequency ablation Most Recent Vital Signs Temperature 36.6 C 07/06/24 14:58 Temperature Source Axillary 07/06/24 14:58 Pulse 59 L 07/06/24 16:11 Respiratory Rate 18 07/06/24 16:11 Respiratory Effort Normal, Non-Labored 07/06/24 16:11 Respiratory Depth Normal 07/06/24 16:11 Respiratory Pattern Normal 07/06/24 16:11 Blood Pressure 139/69 07/06/24 16:11 Blood Pressure Mean 92 07/06/24 16:11 Blood Pressure Position Sitting 07/06/24 16:11 Pulse Oximetry 97 07/06/24 16:11 Oxygen Delivery Method Room Air 07/06/24 16:11 Oxygen Flow Rate 0 07/06/24 16:11 Pain Level 9 07/06/24 11:43 Allergies hydrochlorothiazide Adverse Reaction (Verified 07/06/24 11:44) cough lisinopril Adverse Reaction (Verified 07/06/24 11:44) cough Active Medications Generic Name Dose Route Start Last Admin Trade Name Freq PRN Reason Stop Dose Admin Acetaminophen 0 mg 07/06/24 15:25 07/06/24 16:14 Acetaminophen 325 Mg Tab PO 650 mg Q4H PRN PRN Administration IV IV Catheter Type [Left Saline Lock Antecubital] IV Catheter Gauge [Left 18 Antecubital] Diet Orders Category Date Time Status Regular/Normal [DIET] Nutrition 07/06/24 Dinner Active Diagnostics 07/06/24 Range/Units 12:18 WBC 11.14 H (4.4-10.8) 10^3/uL RBC 4.83 (4.36-5.78) 10^6/uL Hgb 13.4 L (13.5-17.5) g/dL Hct 41.5 (40.0-50.0) % MCV 86 (80-95) fL MCH 27.7 (27.0-33.0) pg MCHC 32.3 (32.0-36.0) % RDW 15.9 H (11.8-14.1) % Plt Count 375 (130-400) 10^3/uL MPV 9.1 (8.0-11.0) fL Immature Gran % 1.9 % Neutrophils % 69.7 % Lymphocytes % 14.5 % Monocytes % 8.2 % Eosinophils % 4.6 % Basophils % 1.1 % Nucleated RBC % 0.0 (0.0-0.3) % Absolute Neutrophils 7.76 H (1.2-6.7) 10^3/uL Absolute Lymphocytes 1.62 (1.2-3.4) 10^3/uL Absolute Monocytes 0.91 H (0.1-0.8) 10^3/uL Absolute Eosinophils 0.51 (0.0-0.7) 10^3/uL Absolute Basophils 0.12 (0.0-0.2) 10^3/uL ESR 43 H (0-20) mm/hr VBG Lactate 1.1 (<or=2.0) mmol/L Sodium 140 (136-145) mmol/L Potassium 3.8 (3.5-5.1) mmol/L Chloride 103 (98-107) mmol/L Carbon Dioxide 30.1 (21.0-32.0) mmol/L Anion Gap 6.9 (3-11) mmol/L BUN 13 (7-18) mg/dL Creatinine 0.9 (0.70-1.30) mg/dL Est GFR (CKD-EPI 2020) 88.51 (mL/min/1.73m2) Glucose 92 (74-106) mg/dL Calcium 9.7 (8.5-10.1) mg/dL Total Bilirubin 0.5 (0.2-1.0) mg/dL AST 20 (15-37) U/L ALT 34 (16-63) U/L Alkaline Phosphatase 117 H (46-116) U/L C-Reactive Protein 17.09 H (<or=0.5) mg/dL Total Protein 7.2 (6.4-8.2) g/dL Albumin 2.4 L (3.4-5.0) g/dL 07/06/24 13:48 Wound Culture - Pending Leg - Left Lower Gram Stain - Pending 07/06/24 12:29 Blood Culture - Pending Blood 07/06/24 12:18 Blood Culture - Pending Blood Intake and Output - 24 Hour Total 07/06/24 11:36 thru 07/06/24 12:22 Intake Total 10 Balance 10 Weight 113.398 kg Intake: IV 10 Falls Risk Assessment History of Falls No History 07/06/24 11:57 Contributing Factors No Factors 07/06/24 11:57 Ambulatory Aids Independent 07/06/24 11:57 Tubes/Lines None 07/06/24 11:57 Gait Evaluation No gait disturbance 07/06/24 11:57 Cognition No cognitive impairment 07/06/24 11:57 Fall Total Score 0 07/06/24 11:57 Level of Risk Standard/Low Risk 07/06/24 11:57 Problems (Last Reviewed 03/13/23 @ 20:38 by Kelly Gibbs NP) Cellulitis (Acute) v v v v v v v v v Sending and/or Receiving Nurses: Please use comment section below to note any information pertinent to the patient hand-off not included above. Information / Comments: Report received from: Halina VALLE
--- NOTE | 2024-07-06 18:25 | NUR.NOTE ---
patient arrived from ED, report from Halina, patient AxOx4, VSS, pain tolerable post tylenol, ate full dinner meal, tolerating PO denies n/v with infection. Transferred to chair to elevate legs, LLE cleaned due to weeping exudate, elevated on pillows, skin splitting due to swelling, red and hot to touch, painful, +3 edema to mcmahon and +1 edema to foot, denies numbnes/tingling. Patient able to ambulate on LLE and is stable on feet, independent in room. In chair, oriented to room, call light in reach. Nursing Note:
[2024-07-06] MEDS: Apixaban 5 MG TAB PO (21:36)
[2024-07-06] MEDS: Acetaminophen 325 MG TAB 650 MG PO (21:36)
[2024-07-06] MEDS: VANCOMYCIN/WATER (PEG) 1 GM/200 ML BAG IVPB (22:17)
[2024-07-07 06:58] LABS: Absolute Eosinophil Count 0.45 10^3/uL (0.0-0.7); Absolute Lymphocyte Count 1.31 10^3/uL (1.2-3.4); Absolute Monocyte Count 0.64 10^3/uL (0.1-0.8); Absolute Neutrophil Count 7.44 10^3/uL (1.2-6.7); Eosinophils % 4.4 %; HCT 36.9 % (40.0-50.0); HGB 12.2 g/dL (13.5-17.5); Lymphocytes % 12.9 %; MCH 27.9 pg (27.0-33.0); MCHC 33.1 % (32.0-36.0); MCV 84 fL (80-95); MPV 9.1 fL (8.0-11.0); Monocytes % 6.3 %; Neutrophils % 73.4 %; Platelet Count 346 10^3/uL (130-400); RBC 4.38 10^6/uL (4.36-5.78); RDW-SD 49.8 fL; WBC 10.14 10^3/uL (4.4-10.8)
[2024-07-07 07:25] LABS: ALT 32 U/L (16-63); AST 19 U/L (15-37); Albumin 2.2 g/dL (3.4-5.0); Alkaline Phosphatase 102 U/L (46-116); Anion Gap 9.5 mmol/L (3-11); BUN 12 mg/dL (7-18); Bilirubin, Total 0.4 mg/dL (0.2-1.0); CO2 26.5 mmol/L (21.0-32.0); CREATININE 0.8 mg/dL (0.70-1.30); Calcium 9.2 mg/dL (8.5-10.1); Chloride 103 mmol/L (98-107); Estimated GFR 91.72 (mL/min/1.73m2); Glucose 112 mg/dL (74-106); Potassium 3.9 mmol/L (3.5-5.1); Sodium 139 mmol/L (136-145); Total Protein 6.6 g/dL (6.4-8.2)
[2024-07-07 07:38] VITALS: BP 139/71; PULSE 66; RESP 18; TEMP 36.4; O2SAT 95
[2024-07-07] MEDS: Acetaminophen 325 MG TAB 650 MG PO ×2 (08:10→20:27)
[2024-07-07] MEDS: Apixaban 5 MG TAB PO ×2 (08:11→20:28)
[2024-07-07] MEDS: dilTIAZem CD 120 MG CAPCR 240 MG PO (08:11)
[2024-07-07] MEDS: Atorvastatin 40 MG TAB 80 MG PO (08:11)
--- NOTE | 2024-07-07 09:56 | PDOC.CMIN ---
Date of service: 07/07/24 Time of Service: 09:56 Care Management Initial Assmt Initial Assessment Reason for Hospitalization: cellulitis LLE Functional Status/Living Situation Patient Presentation: Jasper was sitting up in a chair when CM met with him. He was alert and oriented and engaged easily in conversation. Jasper was admitted with cellulitis of his LLE. He has been receiving IV antibiotics and he shared that he is feeling better already and hopes to be discharged home tomorrow. Jasper shared that he has been staying with his fuel agent in [place] as she is having some health issues of her own. Jasper has Dr. Storm listed as his PCP although he informed CM that he is actually Ciera's physician. [facility]. He is not sure of the name of his provider as it has changed several times. Jasper is independnet at baseline and does not receive any community services. Town of Residence: [facility] Resides with: Alone Significant Other/Family: Out of area (Has 2 daughters who live in [place]. 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 He also enjoys snowmobiling Medications Medication Management: No Issues/Barriers identified Physical Functioning/Mobility Assistive Device: none Advance Directives Advance Directives: Do you have an Advance Directive: Y 10/25/20 13:36 AD On File at [facility]: N 11/18/13 15:27 Date Asked 07/06/24 07/06/24 11:49 AD Date Reviewed COLST On File at [facility] COLST Date Scanned Code Status Resuscitation Status Full Code Portal Pt does not currently have a portal and education provided: Yes Insurance Coverage/Financial Issues Insurance: [facility] Care Team Visit Care Team Role Provider Type Jamin Storm Primary Care Provider [facility] STAFF PHYSICIAN Petra Browne Other Providers STRATEGIC PARTNER DEVELOPMENT MANAGER Helga Alvarado Other Providers STRATEGIC PARTNER DEVELOPMENT MANAGER Ashleigh Ratliff Other Providers STRATEGIC PARTNER DEVELOPMENT MANAGER Vero Arboleda RN Other Providers STRATEGIC PARTNER DEVELOPMENT MANAGER Rosabla Bell Other Providers STRATEGIC PARTNER DEVELOPMENT MANAGER ASAD [facility] Provider PHYSICIANS BUSINESS ADMINISTRATION PROGRAM CHAIR Jamin Bell MD Admit Provider MD CONTRERAS STAFF PHYSICIAN Attending Provider Discharge Potential Discharge Needs: PCP F/U Appt Anticipated Barriers to Discharge: None Identified Patient/Family Education Needs: Review discharge instructions, discuss Ask Me Three Transportation: Private vehicle Plan: Anticipate Jasper will be discharged home with no new services. He will follow up with his community providers and plan of acre and transport with family. CM will follow and continue to support discharge planning. Social Determinants of Health Screening Social Determinants of health last assessed in clinic: 07/06/24 Will the Patient Participate in the Screening?: Declined to provide Do you worry about having a steady place to live?: no Problems where you live: no known problems In the past 12 months, have you had to go without electric, gas, oil or water in your home?: no Has lack of transportation kept you from medical appointments or from doing things needed for daily living?: no Has anyone in your life made you feel unsafe or unsupported?: no How hard is it for you to pay for the very basics like food, housing, medical care, and heating? Would you say it is:: Not hard at all Do you want help finding or keeping work or a job?: I do not need or want help If for any reason you need help with day-to-day activities such as bathing, preparing meals, shopping, managing finances, etc., do you get the help you need?: I don?t need any help How often do you feel lonely or isolated from those around you?: Never Do you speak a language other than Sinhala at home?: No Does the patient want assistance with any of the above?: No PFSH All Active Problems (Updated 07/06/24 @ 15:44 by Jamin Bell MD) Cellulitis (Acute) Essential hypertension (Chronic) Trigger finger, left middle finger (Acute) Injection 05/19/2021 Trigger finger, right middle finger (Acute) Injection 11/11/2020 Right carpal tunnel syndrome (Acute) s/p right ECTR DOS: 10/15/20 Left carpal tunnel syndrome (Acute) s/p left ECTR DOS: 10/29/20 Ulnar neuropathy of both upper extremities (Acute) Medical History Bilateral carpal tunnel syndrome Vitiligo Venous insufficiency (chronic) (peripheral) Atrial flutter Afib Umbilical hernia Sensorineural hearing loss, bilateral Respiratory abnormality Pt. 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 neuritis penitentiary current use of anticoagulant Pelvic joint pain Ingrown nail Hearing loss Essential hypertension Diarrhea Dermatophytosis of nail Counseling for marital and partner problems, unspecified Other color vision deficiencies Blepharitis Bereavement, uncomplicated Amputation finger Surgical History History of cardiac radiofrequency ablation 2018 Social History Smoking/Tobacco Use Status: Never Smoking risk assessment performed?: Yes Alcohol Intake: current Alcohol Intake frequency: 0-2 drinks per day Alcohol type: hard liquor Drug use: Never Substance use type: does not use Household members: significant other Housing: house Number of Children: 2 number of grandchildren: 2 Pets and animals: No Current gender identity: male What is your relationship status?: living with partner Panel score (0-1 are the most socially isolated patients): 1 What type of physical activity do you participate in: walking Seatbelt use: always Do you feel safe at home: Yes Do you feel safe in your relationship?: Yes
--- NOTE | 2024-07-07 10:44 | NUR.NOTE ---
patient AxOx4 this shift, pain controlled with tylenol, LLE cellulitis mildly improved from prior shift, less redness and pain, still +3 edema to mcmahon and +1 to foot, moderate serous weeping today, wrapped with abd pads and gauze, pt will remain another night per MD Bell for IV abx, pt elevating LLE to aid in swelling, all other systems intact. Sitting in chair, call ponce in reach. Nursing Note:
--- NOTE | 2024-07-07 10:57 | PGE_ITS ---
Date of Service Date of service: 07/07/24 Time of Service: 10:57 Assessment and Plan Assessment and plan (1) Afib: Assessment and plan: cw sonidoqubetty (2) Cellulitis: Status: Acute Assessment and plan: cw vancomycin and will hopefully be able to downgrade in am. Recheck cbc in am 07/07/24 PT does appear to be improving but will continue with iv vanco for another 24 hours. Hopefully can transition to PO tomorrow. Recheck labs in am and await culture results Subjective Subjective Interval history since last seen: Pt seen and examined in his room this am. Pt states that he is feeling somewhat better. No f/c/n/v. POC d/w pt as well as with bedside nurse during [facility] ([facility]). Exam Narrative Exam Narrative: HEENT: NCAT MMM EOMI PERRLA NECK: NO LAD NO JVD CV: RRR NO MRG LUNGS: CTAB NO AMU ABD: SNTNDBSA EXT: 3PLUE FERNANDO EDEMA LLE WITH ASSOCIATED ERYTHEMA AND WEEPING OF SEROSANGUINOUS DRAINAGE (decreasing erythema/edema/weeping over last 24 hours) NEURO: CN2-12 NORMAL TESTED, REFLEXES IN BUE WNL CON: 74 Y/O MALE APPEARS HIS STATED AGE, NO DISTRESS Objective Last Vital Signs Temp 36.4 C L 07/07/24 07:38 Pulse 66 07/07/24 07:38 Resp 18 07/07/24 07:38 BP 139/71 07/07/24 07:38 Pulse Ox 95 07/07/24 07:38 Laboratory Results - last 24 hr 07/06/24 07/07/24 12:18 06:30 WBC 11.14 H 10.14 RBC 4.83 4.38 Hgb 13.4 L 12.2 L Hct 41.5 36.9 L MCV 86 84 MCH 27.7 27.9 MCHC 32.3 33.1 RDW 15.9 H 16.0 H Plt Count 375 346 MPV 9.1 9.1 Immature Gran % 1.9 2.0 Neutrophils % 69.7 73.4 Lymphocytes % 14.5 12.9 Monocytes % 8.2 6.3 Eosinophils % 4.6 4.4 Basophils % 1.1 1.0 Nucleated RBC % 0.0 0.0 Absolute Neutrophils 7.76 H 7.44 H Absolute Lymphocytes 1.62 1.31 Absolute Monocytes 0.91 H 0.64 Absolute Eosinophils 0.51 0.45 Absolute Basophils 0.12 0.10 ESR 43 H VBG Lactate 1.1 Sodium 140 139 Potassium 3.8 3.9 Chloride 103 103 Carbon Dioxide 30.1 26.5 Anion Gap 6.9 9.5 BUN 13 12 Creatinine 0.9 0.8 Est GFR (CKD-EPI 2020) 88.51 91.72 Glucose 92 112 H Calcium 9.7 9.2 Total Bilirubin 0.5 0.4 AST 20 19 ALT 34 32 Alkaline Phosphatase 117 H 102 C-Reactive Protein 17.09 H Total Protein 7.2 6.6 Albumin 2.4 L 2.2 L PAWSS Have you Been Recently Intoxicated or Drunk Within the Last 30 days?: No Have you Ever Experienced Previous Episodes of Alcohol Withdrawal?: No Have you ever Experienced Withdrawal Seizures?: No Have you ever Experienced Delirium Tremens(DT)s?: No Have you ever undergone Alcohol Rehabilitation Treatment (i.e, inpt ot outpatient treatment programs)?: No Have you ever Experienced Blackouts?: No Have you ever Combined Alcohol with other Downers within the last 90 days?: No Have you ever Combined Alcohol with any other Substance of Abuse during the last 90 days?: No Positive Blood Alcohol level on Presentation? [PCS.BAL]: No Evidence of Increased Autonomic Activity (i.e. HR>120, tremor, sweating, agitation, nausea)?: No Result: 0 Time Spent with Patient Time Spent with Patient: <25 minutes Time was spent: preparing to see the patient(eg.review tests), obtaining and/or reviewing separately otained hiistory, ordering medications,tests, procedures, referring, communicating with other health transition of care specialist, indepentently interpreting results, counseling the patient and care coordination
[2024-07-07 11:17] VITALS: BP 131/64; PULSE 70; RESP 17; TEMP 36.5; O2SAT 95
[2024-07-07] MEDS: Nystatin POWDER 15 GM JAR TP ×3 (11:45→20:38)
[2024-07-07] MEDS: VANCOMYCIN/WATER (PEG) 1 GM/200 ML BAG IVPB ×2 (11:46→21:51)
[2024-07-07] MEDS: Ibuprofen 600 MG TAB PO ×2 (12:20→20:28)
[2024-07-07 15:23] VITALS: BP 154/69; PULSE 65; RESP 18; TEMP 36.8; O2SAT 97
[2024-07-07 20:03] VITALS: BP 144/87; PULSE 74; RESP 20; TEMP 36.4; O2SAT 94
[2024-07-07] MEDS: Normal Saline Flush 10 ML SYR IVP (20:28)
[2024-07-08 03:19] VITALS: BP 151/67; PULSE 69; RESP 18; TEMP 36.4; O2SAT 96
[2024-07-08] MEDS: Ibuprofen 600 MG TAB PO (06:22)
[2024-07-08 06:46] LABS: Abs Immature Grans 0.14 10^3/uL (0.0-0.06); Absolute Basophil Count 0.11 10^3/uL (0.0-0.2); Absolute Eosinophil Count 0.34 10^3/uL (0.0-0.7); Absolute Lymphocyte Count 1.46 10^3/uL (1.2-3.4); Absolute Neutrophil Count 6.79 10^3/uL (1.2-6.7); Basophils % 1.2 %; Eosinophils % 3.6 %; HCT 39.3 % (40.0-50.0); HGB 12.8 g/dL (13.5-17.5); Immature Grans % 1.5 %; Lymphocytes % 15.5 %; MCH 27.8 pg (27.0-33.0); MCHC 32.6 % (32.0-36.0); MCV 85 fL (80-95); MPV 9.1 fL (8.0-11.0); Monocytes % 6.4 %; Neutrophils % 71.8 %; Platelet Count 385 10^3/uL (130-400); RBC 4.61 10^6/uL (4.36-5.78); RDW 16.1 % (11.8-14.1); RDW-SD 49.8 fL; WBC 9.44 10^3/uL (4.4-10.8)
[2024-07-08 07:07] LABS: ALT 31 U/L (16-63); AST 21 U/L (15-37); Albumin 2.3 g/dL (3.4-5.0); Alkaline Phosphatase 100 U/L (46-116); Anion Gap 7.9 mmol/L (3-11); BUN 15 mg/dL (7-18); Bilirubin, Total 0.4 mg/dL (0.2-1.0); CO2 27.1 mmol/L (21.0-32.0); CREATININE 0.8 mg/dL (0.70-1.30); Calcium 9.2 mg/dL (8.5-10.1); Chloride 107 mmol/L (98-107); Estimated GFR 91.72 (mL/min/1.73m2); Glucose 99 mg/dL (74-106); Potassium 3.9 mmol/L (3.5-5.1); Sodium 142 mmol/L (136-145); Total Protein 6.9 g/dL (6.4-8.2)
[2024-07-08 07:33] VITALS: BP 135/71; PULSE 66; RESP 16; TEMP 36.8; O2SAT 95
[2024-07-08] MEDS: VANCOMYCIN/WATER (PEG) 1 GM/200 ML BAG IVPB (09:29)
[2024-07-08] MEDS: Acetaminophen 325 MG TAB 650 MG PO (09:31)
[2024-07-08] MEDS: Apixaban 5 MG TAB PO (09:31)
[2024-07-08] MEDS: dilTIAZem CD 120 MG CAPCR 240 MG PO (09:31)
[2024-07-08] MEDS: Atorvastatin 40 MG TAB 80 MG PO (09:31)
--- NOTE | 2024-07-08 11:35 | DSE_ITS ---
Date of service: 07/08/24 Time of Service: 11:35 DS: Diagnosis Discharge Diagnosis (1) Afib: (2) Cellulitis: Status: Acute Discharge Plan Disposition Patient Disposition: Home Condition: Stable Discharge Details Reason For Visit: Cellulitis Admit Date/Time: 07/06/24 15:25 Admit Provider: Jamin Bell Attending Provider: Jamin Bell Primary Care Provider: Jamin Storm Hospital Course Hospital Course: Patient was admitted for cellulitis as well as lymphedema in the left lower extremity. As mentioned, he was needing to get a lower extremity ultrasound which did not show any DVT. Patient also got lower extremity films that did not indicates osteomyelitis. Originally the patient was started on vancomycin but on the he asked to be discharged home as he felt better. At this point we made a recommendation to complete a course of Bactrim and this will be sent over to his pharmacy. I will add that the patient does appear to have at least a bit of venous stasis changes as well as lymphedema in his left lower extremity. Patient usually uses compression stockings and I recommended continuation of this. This is a 74-year-old gentleman who presents to the ED today with worsening left lower extremity cellulitis. Apparently the patient was seen at the [facility] on Wednesday and was diagnosed with lymphedema and sent home without antibiotics and was told to just elevate his legs. Patient came in today with worsening erythema and was seen in the ED and then admitted to the hospitalist service for further evaluation and treatment. Per my discussion with the patient he endorses this history. Patient has had cellulitis in the past. Patient recently traveled back from [place]. While in the ED a venous ultrasound was done which was negative. The patient also had x-rays done which showed soft tissue edema but no osteomyelitis. Patient was noted to have an elevated white count possibly 11,000 as well as mild anemia. Pt was started on abx (vancomycin) Home Meds and New Rx's Prescriptions: New sulfamethoxazole-trimethoprim [Bactrim DS] 800-160 mg tablet 2 tab PO BID 5 Days Qty: 20 0RF Continued atorvastatin 80 mg tablet 80 mg PO DAILY apixaban 5 mg tablet 5 mg PO BID acetaminophen [Tylenol] 325 MG tablet 650 mg PO BID diltiazem HCl 240 mg Capsule,Extended Release 24 Hr 240 mg PO DAILY Discharge Instructions Referrals: Primeau,Jamin E [Primary Care Provider] - (Follow up with PCP in 3-5 days. Complete abx as prescribed) Activity:: Activity as Tolerated Equipment/Supplies:: No Equipment Needed Diet:: As Tolerated Discharge Orders Discharge Orders: Discharge Order (Routine); Ordered 07/08/24 Ordered By: Jamin Bell DS: Summary Time Spent with Patient providing and/or coordinating discharge services: Less than 30 minutes Status at Discharge Functional status at discharge: independent ambulation Overall status at discharge: patient is progressing back to baseline Mental Status: mental status grossly normal Speech and Movement: speech and movement normal Mood: congruent mood Affect: normal affect Quality:SDOH Health Related Social Needs: No Data to Display Exam Narrative Exam Narrative: HEENT: NCAT MMM EOMI PERRLA NECK: NO LAD NO JVD CV: RRR NO MRG LUNGS: CTAB NO AMU ABD: SNTNDBSA EXT: 3PLUE FERNANDO EDEMA LLE WITH ASSOCIATED ERYTHEMA AND WEEPING OF SEROSANGUINOUS DRAINAGE (decreasing erythema/edema/weeping over last 24 hours) NEURO: CN2-12 NORMAL TESTED, REFLEXES IN BUE WNL CON: 74 Y/O MALE APPEARS HIS STATED AGE, NO DISTRESS Psych Mental Status: mental status grossly normal Speech and Movement: speech and movement normal Mood: congruent mood Affect: normal affect DS: Data Vitals/I&O Vitals and I&O: Vital Signs Temperature 36.8 C 07/08/24 07:33 Temperature Source Temporal Artery Scan 07/08/24 07:33 Pulse 66 07/08/24 07:33 Respiratory Rate 16 07/08/24 07:33 Respiratory Effort Normal, Non-Labored 07/06/24 16:11 Respiratory Depth Normal 07/06/24 16:11 Respiratory Pattern Normal 07/06/24 16:11 Blood Pressure 135/71 07/08/24 07:33 Blood Pressure Mean 92 07/06/24 16:11 Blood Pressure Position Sitting 07/06/24 16:11 Pulse Oximetry 95 07/08/24 07:33 Oxygen Delivery Method Room Air 07/08/24 07:33 Oxygen Flow Rate 0 07/08/24 07:33 Pain Level 0 07/08/24 07:33 Comment Notifying RN 07/07/24 15:23 Intake & Output 07/07/24 07/07/24 07/08/24 11:59 23:59 11:59 Intake Total 440 / 650 210 / 650 Balance 440 / 650 210 / 650 Weight 117.2 kg 115.167 kg Intake: IV 200 / 410 210 / 410 Oral 240 / 240 Other: Urine Color Yellow Urine Appearance Clear Data Completed and Pending Labs on day of discharge: Labs from last 24 hours 07/08/24 07/07/24 05:54 20:58 WBC 9.44 RBC 4.61 Hgb 12.8 L Hct 39.3 L MCV 85 MCH 27.8 MCHC 32.6 RDW 16.1 H Plt Count 385 MPV 9.1 Immature Gran % 1.5 Neutrophils % 71.8 Lymphocytes % 15.5 Monocytes % 6.4 Eosinophils % 3.6 Basophils % 1.2 Nucleated RBC % 0.0 Absolute Neutrophils 6.79 H Absolute Lymphocytes 1.46 Absolute Monocytes 0.60 Absolute Eosinophils 0.34 Absolute Basophils 0.11 Sodium 142 Potassium 3.9 Chloride 107 Carbon Dioxide 27.1 Anion Gap 7.9 BUN 15 Creatinine 0.8 Est GFR (CKD-EPI 2020) 91.72 Glucose 99 Calcium 9.2 Total Bilirubin 0.4 AST 21 ALT 31 Alkaline Phosphatase 100 Total Protein 6.9 Albumin 2.3 L Vancomycin Trough 10.0 Preliminary micro results at discharge 07/06/24 13:48 Wound Culture - Preliminary Leg - Left Lower Staphylococcus aureus Strep pyogenes (Group A) 07/06/24 12:29 Blood Culture - Preliminary Blood NO GROWTH 24 HOURS 07/06/24 12:18 Blood Culture - Preliminary Blood NO GROWTH 24 HOURS PFSH All Active Problems (Updated 07/06/24 @ 15:44 by Jamin Bell MD) Cellulitis (Acute) Essential hypertension (Chronic) Trigger finger, left middle finger (Acute) Injection 05/19/2021 Trigger finger, right middle finger (Acute) Injection 11/11/2020 Right carpal tunnel syndrome (Acute) s/p right ECTR DOS: 10/15/20 Left carpal tunnel syndrome (Acute) s/p left ECTR DOS: 10/29/20 Ulnar neuropathy of both upper extremities (Acute) Medical History Bilateral carpal tunnel syndrome Vitiligo Venous insufficiency (chronic) (peripheral) Atrial flutter Afib Umbilical hernia Sensorineural hearing loss, bilateral Respiratory abnormality Pt. 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 Pelvic joint pain Ingrown nail Hearing loss Essential hypertension Diarrhea Dermatophytosis of nail Counseling for marital and partner problems, unspecified Other color vision deficiencies Blepharitis Bereavement, uncomplicated Amputation finger Surgical History History of cardiac radiofrequency ablation 2017 Social History Smoking/Tobacco Use Status: Never Smoking risk assessment performed?: Yes Alcohol Intake: current Alcohol Intake frequency: 0-2 drinks per day Alcohol type: hard liquor Drug use: Never Substance use type: does not use Household members: significant other Housing: house Number of Children: 2 number of grandchildren: 2 Pets and animals: No Current gender identity: male What is your relationship status?: living with partner Panel score (0-1 are the most socially isolated patients): 1 What type of physical activity do you participate in: walking Seatbelt use: always Do you feel safe at home: Yes Do you feel safe in your relationship?: Yes Time Spent with Patient Time Spent with Patient: <45 minutes Time was spent: preparing to see the patient(eg.review tests), obtaining and/or reviewing separately otained hiistory, ordering medications,tests, procedures, referring, communicating with other health child care associate teacher, indepentently interpreting results, counseling the patient and care coordination
--- NOTE | 2024-07-08 15:17 | PDOC.CMDIS ---
Date of service: 07/08/24 Time of Service: 15:17 LACE Index Scoring Tool Questions: Length of Stay (in days): 2 Was the patient admitted via the E.D.?: Yes Comorbidities: PVD E.D. Visits: 1 Answers: Total Score: 7 Risk of Readmission: Low Risk Care Management Discharge Plan Reason for Hospitalization: cellulitis Discharge Plan: Jasper will be discharged home with no new services. He will follow up with his community providers and plan of care and transport with family. Patient/Family Education Needs: Review discharge instructions, limitations, follow up plan and discuss [facility] Health Related Social Needs: No Data to Display
== END 2024-07-08 12:50 | disposition home or self-care (01) ==
LOC: ER 11:55 → MS 17:00
PROVIDERS: Admitting Provider Hospitalist; Emergency Provider Physician Assistant; PCP Internal Medicine; Responsible Provider Hospitalist; Visit Provider Hospitalist
DX: I48.91 Unspecified atrial fibrillation (principal); L03.116 Cellulitis of left lower limb; I10 Essential (primary) hypertension; I87.2 Venous insufficiency (chronic) (peripheral); H90.3 Sensorineural hearing loss, bilateral; F32.9 Major depressive disorder, single episode, unspecified; F43.10 Post-traumatic stress disorder, unspecified; E66.09 Other obesity due to excess calories; Z79.01 Long term (current) use of anticoagulants; Z79.899 Other long term (current) drug therapy; I89.0 Lymphedema, not elsewhere classified; Z68.33 Body mass index [BMI] 33.0-33.9, adult
CPT/HCPCS: 00123; 36415; 80053; 85652; 87040; 87077; 96365; 96366; 99285; 73590; 80202; 83605; 85025; 86140; 87070; 87186; 87205; 93971; 99222; 99232; 99239; G0378; J3372

== ENCOUNTER 2024-12-20 11:11 | Emergency (ER) | payer OTHER, SELFPAY ==
[2024-12-20 11:26] VITALS: BP 160/74; PULSE 63; RESP 16; TEMP 36.6; O2SAT 92
[2024-12-20] MEDS: Fluorescein STRIPS 100/BOX 1 MG OP (11:51)
[2024-12-20] MEDS: Tetracaine 0.5% 4 ML BTL OP (11:51)
[2024-12-20 12:29] VITALS: BP 145/71; PULSE 56; RESP 20; O2SAT 95
--- NOTE | 2024-12-20 15:54 | W.ED.GENAD ---
Discharge Plan Disposition Patient Disposition: Home Condition: Stable Discharge Details Clinical Impression: Keratitis Primary Care Provider: Unknown,Unknown ED Provider: Shraddha Leslie Home Meds and New Rx's Prescriptions: New moxifloxacin 0.5 % drops 1 drp ophthalmic (eye) TID 7 Days Qty: 3 0RF Continued atorvastatin 80 mg tablet 80 mg PO DAILY apixaban 5 mg tablet 5 mg PO BID acetaminophen [Tylenol] 325 MG tablet 650 mg PO BID diltiazem HCl 240 mg Capsule,Extended Release 24 Hr 240 mg PO DAILY Discharge Instructions Additional Instructions: Please follow-up with [facility] tomorrow, Refrain from itching eye is much as possible Tylenol as needed for pain Use the eyedrops as prescribed Please return with worsening pain, fever, chills, or should you have any new or worsening complaints Wash your hands with soap and water as much as possible to avoid spreading infection Discharge Data Discharge Date/Time-TO BE ENTERED AT DEPARTURE: 12/20/24 12:33 HPI General Date/Time Provider Initiated Documentation: 12/20/24 11:32. HPI Narrative: This 74-year-old male is presenting with left eye irritation for the past 3 days. Denies any change in vision. States has some clear drainage. Has had this happen previously managed by ophthalmology at [place]. Patient denies any trauma. Denies any history of correction use to eyes. Denies history of glaucoma. Related Data Home Medications ?Medication ?Instructions ?Recorded ?Confirmed acetaminophen 325 mg tablet 650 mg PO BID 09/28/14 12/20/24 (Tylenol) apixaban 5 mg tablet 5 mg PO BID 03/18/20 12/20/24 atorvastatin 80 mg tablet 80 mg PO DAILY 03/18/20 12/20/24 diltiazem HCl 240 mg capsule,24 240 mg PO DAILY 10/29/20 12/20/24 hr,extended release moxifloxacin 0.5 % eye drops 1 drp ophthalmic (eye) TID 7 days 12/20/24 #3 mL Previous Rx's ?Medication ?Instructions ?Recorded moxifloxacin 0.5 % eye drops 1 drp ophthalmic (eye) TID 7 days 12/20/24 #3 mL Allergies Allergy/AdvReac Type Severity Reaction Status Date / Time hydrochlorothiazide AdvReac cough Verified 12/20/24 11:29 lisinopril AdvReac cough Verified 12/20/24 11:29 General Stated Complaint: EyeProblem MICHELLE: 4 Exam Narrative Exam Narrative: Left eye with significant conjunctival injection, corneal uptake of fluorescein, punctate lesions, pupil equal round reactive to light and accommodation extraocular muscles intact no significant proptosis, Adin-Pen pressure 10 send lid swelling without tenderness. No respiratory distress normal cardiac rate Course Vital Signs Vital signs: Vital Signs Temperature 36.6 C 12/20/24 11:26 Pulse 63 12/20/24 11:26 Respiratory Rate 16 12/20/24 11:26 Blood Pressure 160/74 H 12/20/24 11:26 Pulse Oximetry 92 12/20/24 11: Temperature 36.6 C 12/20/24 11: Pulse 56 L 12/20/24 12:29 Respiratory Rate 20 12/20/24 12:29 Blood Pressure 145/71 H 12/20/24 12:29 Pulse Oximetry 95 12/20/24 12:29 Oxygen Delivery Method Room Air 12/20/24 11:26 Oxygen Flow Rate 0 12/20/24 11:26 Pain Level 2 12/20/24 12:29 Medical Decision Making Assessment and plan: Patient with keratitis versus conjunctivitis. Will start Avelox drops, given the extensive injection and uptake I will refer to ophthalmology for reassessment tomorrow. Patient will use Avelox, visual acuity 20/40 right 20/50 left 20/50 OU. Eye pressure 10.6 left. Denies any headache. Return precautions reviewed and patient expressed understanding [facility] All Active Problems (Updated 12/20/24 @ 12:04 by ASAD Rice) Keratitis (Acute) Cellulitis (Acute) Essential hypertension (Chronic) Trigger finger, left middle finger (Acute) Injection 05/19/2021 Trigger finger, right middle finger (Acute) Injection 11/11/2020 Right carpal tunnel syndrome (Acute) s/p right ECTR DOS: 10/15/20 Left carpal tunnel syndrome (Acute) s/p left ECTR DOS: 10/29/20 Ulnar neuropathy of both upper extremities (Acute) Medical History Bilateral carpal tunnel syndrome Vitiligo Venous insufficiency (chronic) (peripheral) Atrial flutter Afib Umbilical hernia Sensorineural hearing loss, bilateral Respiratory abnormality Pt. 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 Pelvic joint pain Ingrown nail Hearing loss Essential hypertension Diarrhea Dermatophytosis of nail Counseling for marital and partner problems, unspecified Other color vision deficiencies Blepharitis Bereavement, uncomplicated Amputation finger Surgical History History of cardiac radiofrequency ablation 2018 Social History Smoking/Tobacco Use Status: Never Smoking risk assessment performed?: Yes Alcohol Intake: current Alcohol Intake frequency: 0-2 drinks per day Alcohol type: hard liquor Drug use: Never Substance use type: does not use Household members: significant other Housing: house Number of Children: 2 number of grandchildren: 2 Pets and animals: No Current gender identity: male What is your relationship status?: living with partner Panel score (0-1 are the most socially isolated patients): 1 What type of physical activity do you participate in: walking Seatbelt use: always Do you feel safe at home: Yes Do you feel safe in your relationship?: Yes
== END 2024-12-20 12:33 | disposition home or self-care (01) ==
PROVIDERS: Emergency Provider Physician Assistant
DX: H16.9 Unspecified keratitis (principal)
CPT/HCPCS: 99283 ×2

== ENCOUNTER 2025-02-02 10:14 | Emergency (ER) | payer OTHER, SELFPAY ==
[2025-02-02 10:20] VITALS: BP 151/57; PULSE 78; RESP 16; TEMP 36.6; O2SAT 96
--- NOTE | 2025-02-02 10:30 | DI.US_ITS ---
Exam(s) US LOWER EXTREMITY VENOUS LT EXAM: US LOWER EXTREMITY VENOUS LT CLINICAL HISTORY: pain/swelling TECHNIQUE: Grayscale, color, and doppler imaging of the deep venous system of the left lower extremity was performed. COMPARISON: US US LOWER EXTREMITY VENOUS LT from 07/06/2024 FINDINGS: There is no evidence of intraluminal thrombus and there is normal compression and augmentation demonstrated within the common femoral vein, femoral vein, and popliteal vein. In the ipsilateral calf the interrogated veins also exhibit normal compression/ augmentation properties. The ipsilateral saphenofemoral junction is patent. There are 2 prominent lymph nodes in the left groin, these measuring 3.2 x 1.1 x 2.6 and 4.0 x 1.5 x 4.5. The larger of the 2 appears slightly irregular in shape. There is also a small noncompressible hypoechoic focus in the left proximal mid thigh measuring 0.9 x 0.6 x 0.8 cm incidentally noted. Possibly another smaller lymph node IMPRESSION: 1. No evidence of DVT in the left lower extremity. 2. Slightly prominent lymph nodes in the left groin as described above,, one of which appears unconventional. Appropriate follow-up recommended. DATA REPOSITORY:
--- NOTE | 2025-02-02 10:54 | W.ED.GENAD ---
Discharge Plan Disposition Patient Disposition: Home Discharge Details Clinical Impression: Cellulitis Primary Care Provider: Unknown,Unknown ED Provider: Braxton Guerrero Home Meds and New Rx's Prescriptions: New sulfamethoxazole-trimethoprim [Bactrim DS] 800-160 mg tablet 1 tab PO BID Qty: 20 0RF Continued atorvastatin 80 mg tablet 80 mg PO DAILY apixaban 5 mg tablet 5 mg PO BID acetaminophen [Tylenol] 325 MG tablet 650 mg PO BID diltiazem HCl 240 mg Capsule,Extended Release 24 Hr 240 mg PO DAILY Discharge Instructions Instructions: Cellulitis (Skin Infection), Adult ED Additional Instructions: Bactrim as directed. Wear compression stockings as tolerated. Rest, elevate, cool and/or warm compresses every 2 hours for 20 minutes. Please watch for new or worsening symptoms and return to the ER for any concerns. Otherwise please follow-up with your primary care provider on Wednesday to discuss your ER evaluation and need for outpatient reevaluation. Stand Alone Forms: Portal Information Discharge Data Discharge Date/Time-TO BE ENTERED AT DEPARTURE: 02/02/25 13:04 HPI General Mode of arrival: ambulatory. Date/Time Provider Initiated Documentation: 02/02/25 10:23. Limitations to Documentation: no limitations. Information obtained by: patient. History of Present Illness 75 year old M presents to the emergency department with the chief complaint of Left lower leg infection, described as moderate, with intensity rated at 4. Quality is described as aching, and is localized to the left and lower extremity. Patient reports no radiation. Patient started experiencing this week(s) (1) and it has been constant. No relieving factors improve symptom(s), No exacerbating factors reported . Patient notes no other symptoms.. Patient did receive the following treatments prior to arrival, none Related Data Home Medications Medication Instructions Recorded Confirmed acetaminophen 325 mg tablet 650 mg PO BID 09/28/14 02/02/25 (Tylenol) apixaban 5 mg tablet 5 mg PO BID 03/18/20 02/02/25 atorvastatin 80 mg tablet 80 mg PO DAILY 03/18/20 02/02/25 diltiazem HCl 240 mg capsule,24 240 mg PO DAILY 10/29/20 02/02/25 hr,extended release sulfamethoxazole 800 1 tab PO BID #20 tabs 02/02/25 mg-trimethoprim 160 mg tablet (Bactrim DS) Previous Rx's Medication Instructions Recorded sulfamethoxazole 800 1 tab PO BID #20 tabs 02/02/25 mg-trimethoprim 160 mg tablet (Bactrim DS) Allergies Allergy/AdvReac Type Severity Reaction Status Date / Time hydrochlorothiazide AdvReac cough Verified 02/02/25 10:25 lisinopril AdvReac cough Verified 02/02/25 10:25 General Stated Complaint: Vascular MICHELLE: 3 Review of Systems Constitutional Constitutional: Reports fatigue, Denies fever(s), Denies headache(s) and Reports weakness (Generalized) ENT Ears, Nose, Mouth, and Throat: Denies headache(s) and Denies neck pain Cardiovascular Cardiovascular: Denies chest pain and Denies dyspnea Respiratory Respiratory: Reports cough (Mild dry) and Denies dyspnea Gastrointestinal Gastrointestinal: Denies abdominal pain, Denies nausea and Denies vomiting Musculoskeletal Musculoskeletal: Denies neck pain, Denies numbness and Denies tingling Integumentary/Breasts Skin/Breast: Reports rash Neurologic Neurologic: Denies headache(s), Denies numbness, Denies tingling and Reports weakness (Generalized) Endocrine Endocrine: Reports fatigue Hematologic/Lymphatic Hematologic/Lymphatic: Reports easy bleeding and Reports easy bruising Exam Const General: cooperative, healthy appearing, comfortable and no acute distress Orientation: alert, awake and oriented x3 HENMT Head: normal to inspection, normocephalic and atraumatic Mouth: moist mucous membranes Eyes Conjunctivae: conjunctivae normal Neck Neck: normal visual inspection, trachea midline and supple Resp Effort & Inspection: normal respiratory effort and able to speak in complete sentences Auscultation: clear to auscultation bilaterally Cardio Rate: regular rate Rhythm: abnormal rhythm irregularly irregular Skin General skin exam: erythema (Mild, dorsal aspect of left foot) Neuro General: patient alert, patient awake, moves all extremities and no focal motor deficits Cognition: normal cognition Speech: speech normal Gait: normal gait Sensory Exam: no sensory deficits noted Extrem General: normal to inspection, full ROM, capillary refill normal and normal gait Other: Left lower extremity with mild swelling about the distal lower extremity that extends into the ankle and the dorsum of the foot. There is mild erythema about the dorsum of the foot. Skin is intact. There is mild discomfort about the erythema. No lymphangitic streaking. Demonstrates good painless ankle dorsi and plantarflexion as well as wiggling of all toes. Negative Homans' sign. 1+ pedal pulse confirmed by Doppler, normal capillary refill. Sensation intact throughout. Psych Appearance: grossly normal Mental Status: mental status grossly normal Course Vital Signs Vital signs: Vital Signs Temperature 36.6 C 02/02/25 10:20 Pulse 78 02/02/25 10:20 Respiratory Rate 16 02/02/25 10:20 Blood Pressure 151/57 H 02/02/25 10:20 Pulse Oximetry 96 02/02/25 10:20 Temperature 36.6 C 02/02/25 10:20 Pulse 78 02/02/25 10:20 Respiratory Rate 16 02/02/25 10:20 Respiratory Effort Normal 02/02/25 10:33 Respiratory Depth Normal 02/02/25 10:33 Respiratory Pattern Normal 02/02/25 10:33 Blood Pressure 151/57 H 02/02/25 10:20 Pulse Oximetry 96 02/02/25 10:20 Pain Level 5 02/02/25 10:20 Medical Decision Making This is a 75-year-old male with past medical history of A-fib, on apixaban, who describes previous left lower extremity trauma resulting in chronic edema. He typically wears compression stockings however was hopeful that he could discontinue these. He attempted to discontinue his stockings for about 4 days and unfortunately swelling increased, subsequently developed some erythema. Describes a similar episode but much worse in June of this year which resulted in a hospitalization. He presents today in hopes to catch this before he gets more severe. Denies fever, chest pain or shortness of breath. Per triage note, he states that he felt a little dizzy today. He denies dizziness to me. When he does describes a mild URI over the last week which has resulted in generalized mild weakness although this is improving. Clinically he appears well, nontoxic. There is mild swelling and erythema about the left foot which appears to be consistent with mild cellulitis. Skin is intact. There is no weepage or drainage. There is no lymphangitic streaking. Calf is soft and nontender. He is afebrile. Plan to obtain routine screening laboratory values and will obtain left lower extremity DVT ultrasound study although extremely low suspicion for DVT. Ultrasound read by radiology as no evidence of DVT in the left lower extremity. Slightly prominent lymph nodes in the left groin, 1 of which appears unconventional. Appropriate follow-up recommended. Laboratory values reveal a white blood cell count of 17.35. Electrolytes unremarkable. Creatinine 0.8 with a GFR of 97.95. Discussed results of ultrasound and laboratory values with patient. Again clinically he appears well, nontoxic. Stable vital signs. I have reviewed his hospitalization back in June, was discharged on p.o. Bactrim which worked well for him. There is no evidence of toxicity or sepsis, no clear indication for admission at this time. I do believe that is reasonable to trial p.o. antibiotics with close monitoring. First dose of Bactrim given now. Recommend watching for new or worsening symptoms over the weekend and returning immediately to the ER. Otherwise recommend contacting [facility] on Wednesday to discuss his cellulitis and need for outpatient reevaluation. Will also need follow-up regarding the prominent lymph node in the left groin. Patient agreeable to this plan and has no additional questions or concerns. Standard discharge and return precautions were provided. Patient understands, is agreeable to this plan, and has no additional questions or concerns upon discharge. This documentation was generated using [employer] system, please disregard any oddities of phrase or misspellings. Medical Records Medical records reviewed: Yes I reviewed the patient's medical records. Lab Data Lab results reviewed: Yes I reviewed the patient's lab results. PFSH All Active Problems (Updated 02/02/25 @ 12:53 by ASAD Barnhart) Cellulitis (Acute) Essential hypertension (Chronic) Trigger finger, left middle finger (Acute) Injection 05/19/2021 Trigger finger, right middle finger (Acute) Injection 11/11/2020 Right carpal tunnel syndrome (Acute) s/p right ECTR DOS: 10/15/20 Left carpal tunnel syndrome (Acute) s/p left ECTR DOS: 10/29/20 Ulnar neuropathy of both upper extremities (Acute) Medical History Bilateral carpal tunnel syndrome Vitiligo Venous insufficiency (chronic) (peripheral) Atrial flutter Afib Umbilical hernia Sensorineural hearing loss, bilateral Respiratory abnormality Pt. 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 Pelvic joint pain Ingrown nail Hearing loss Diarrhea Dermatophytosis of nail Counseling for marital and partner problems, unspecified Other color vision deficiencies Blepharitis Bereavement, uncomplicated Amputation finger Surgical History History of cardiac radiofrequency ablation 2018 Social History Smoking/Tobacco Use Status: Never Smoking risk assessment performed?: Yes Alcohol Intake: current Alcohol Intake frequency: 0-2 drinks per day Alcohol type: hard liquor Drug use: Never Substance use type: does not use Household members: significant other Housing: house Number of Children: 2 number of grandchildren: 2 Pets and animals: No Current gender identity: male What is your relationship status?: living with partner Panel score (0-1 are the most socially isolated patients): 1 What type of physical activity do you participate in: walking Seatbelt use: always Do you feel safe at home: Yes Do you feel safe in your relationship?: Yes
[2025-02-02 11:07] LABS: Abs Immature Grans 0.12 10^3/uL (0.0-0.06); HCT 40.8 % (40.0-50.0); HGB 13.5 g/dL (13.5-17.5); Immature Grans % 0.7 %; MCH 28.0 pg (27.0-33.0); MCHC 33.1 % (32.0-36.0); MCV 85 fL (80-95); MPV 10.0 fL (8.0-11.0); Platelet Count 170 10^3/uL (130-400); RBC 4.83 10^6/uL (4.36-5.78); RDW 15.1 % (11.8-14.1); RDW-SD 46.0 fL; WBC 17.35 10^3/uL (4.4-10.8)
[2025-02-02 11:30] LABS: ALT 13 U/L (10-49); AST 11 U/L (<34); Albumin 4.2 g/dL (3.4-5.0); Alkaline Phosphatase 93 U/L (46-116); Anion Gap 9.6 mmol/L (3-11); BUN 17 mg/dL (9-23); Bilirubin, Total 0.80 mg/dL (0.2-1.2); CO2 23.4 mmol/L (20.0-31.0); Calcium 9.3 mg/dL (8.3-10.6); Chloride 105 mmol/L (98-107); Glucose 116 mg/dL (74-106); Potassium 3.5 mmol/L (3.5-5.1); Sodium 138 mmol/L (136-145); Total Protein 7.0 g/dL (5.7-8.2)
[2025-02-02] MEDS: Sulfameth/Trimeth DS TAB 1 TAB PO (13:00)
== END 2025-02-02 13:04 | disposition home or self-care (01) ==
PROVIDERS: Emergency Provider Physician Assistant
DX: L03.116 Cellulitis of left lower limb (principal); R22.42 Localized swelling, mass and lump, left lower limb; Z79.01 Long term (current) use of anticoagulants
CPT/HCPCS: 99284 ×2; 36415; 80053; 85025; 93971